=== PATIENT | male | born 1990 | race Caucasian/White ===

== ENCOUNTER 2020-09-03 18:12 | Emergency (ER) | payer BC, SELFPAY ==
[2020-09-03 18:40] VITALS: BP 133/87; PULSE 74; RESP 18; TEMP 37.1; O2SAT 98; BMI 43.4
--- NOTE | 2020-09-03 18:56 | HMH.EDUTC ---
[facility] [place] Clinical Impression: Exposure to COVID-19 virus Otitis media Qualifiers: Otitis media type: suppurative Chronicity: acute Laterality: left Recurrence: non-recurrent Spontaneous tympanic membrane rupture: without spontaneous rupture Qualified Code(s): H66.002 - Acute suppurative otitis media without spontaneous rupture of ear drum, left ear Disposition: Home, Self-Care Condition on Discharge: Good Instructions: Middle Ear Infection, Preventing the Spread of Coronavirus Discharge Instructions Additional Instructions: Drink plenty of fluids. Take tylenol for pain or fever. Return if you begin to have difficulty breathing. Follow up with your regular doctor. GO TO THE ER FOR ANY WORSENING SYMPTOMS Prescriptions: predniSONE [Deltasone 10mg tablet] 10 mg PO BID 3 Days #6 tab Transmission Status: [id number] Azithromycin [Z-Misha 250mg Tab*] 250 mg PO UD DOSE PK #6 tab Transmission Status: [id number] Referrals: Durga Guillen [Primary Care Provider] - Forms: Work/School Release Time of Disposition: 19:19 Medical Decision Making - Medical Records Medical records reviewed: No: I reviewed the patient's medical records. - Iron Inquiry Pt receiving controlled substance: No Vital Signs: 09/03/20 18:40 Temperature 98.8 F Temperature Source Oral Pulse Rate [Right Brachial] 74 Respiratory Rate 18 Blood Pressure [Right Arm] 133/87 Blood Pressure Mean [Right Arm] 102 Blood Pressure Source [Right Arm] Automatic Cuff Blood Pressure Position [Right Arm] Sitting 02 Sat by Pulse Oximetry 98 Oxygen Delivery Method Room Air Orders (Tests/Meds): ORDERS Category Date Time Status Covid-19 Nasal PCR Sendout [facility] 09/03/20 19:04 Received [facility] [place] HPI - General Stated complaint: L ear pain,RODRIGUEZ Time Seen by Provider: 09/03/20 18:56 - History of Present Illness Provider Complaint: He states that since yesterday he has had a headache and left ear pain. He feels like he has an ear infection. He has been exposed to covid at his job also. - Related Data Previous Rx's Medication Instructions Recorded Azithromycin [Z-Misha 250mg Tab*] 250 mg PO UD DOSE PK #6 tab 09/03/20 predniSONE [Deltasone 10mg tablet] 10 mg PO BID 3 Days #6 tab 09/03/20 Allergies Allergy/AdvReac Type Severity Reaction Status Date / Time No Known Allergies Allergy Verified 09/03/20 19:13 [facility] History - Hepatitis A Screen Attestation statement:: This patient has been screened for Hepatitis A risk factors. I have reviewed the patient's past medical history: Yes ROS Obtained: Yes All systems reviewed & no additional complaints - Constitutional Constitutional: Denies chills, Denies fever(s), Reports poor appetite, Reports malaise - Eyes Eyes: Denies eye discharge - ENT Ears, Nose, Mouth, and Throat: Reports as per HPI - Cardiovascular Cardiovascular: Denies chest pain - Respiratory Respiratory: No chest congestion, No cough, No dyspnea, No stridor, No wheezing Physical Exam - General General appearance: alert, in no apparent distress - Head Head exam: atraumatic, normocephalic, normal inspection - Eye Eye exam: Present: normal appearance, PERRL, EOMI - ENT ENT exam: Present: mucous membranes moist, normal external ear exam - Expanded ENT Exam TM/Canal exam: Left TM: erythema, bulging, effusion Nose exam: Present: sinus tenderness Mouth exam: Present: normal external inspection Teeth exam: Present: normal inspection Throat exam: Present: tonsillar erythema. Absent: tonsillomegaly, tonsillar exudate, R peritonsillar mass, L peritonsillar mass - Neck Neck exam: Present: normal inspection, full ROM, trachea midline. Absent: meningismus, lymphadenopathy - Chest Chest inspection: Present: normal inspection, symmetric chest wall rise. Absent: tenderness - Respiratory Respiratory exam: Present: normal lung sounds bilaterally. A
[2020-09-03 19:17] VITALS: BP 133/87; PULSE 74; RESP 18; TEMP 37.1; O2SAT 98
[2020-09-05 09:23] LABS: Covid-19 Nasal PCR Sendout UK Not Detected
== END 2020-09-03 19:19 | disposition home or self-care (01) ==
PROVIDERS: Emergency Provider Nurse Practitioner Family; PCP Pediatrics
DX: Z20.828 Contact with and (suspected) exposure to other viral communicable diseases (principal); H66.002 Acute suppurative otitis media without spontaneous rupture of ear drum, left ear
CPT/HCPCS: 99201; U0003

== ENCOUNTER → 2021-04-29 15:13 | Outpatient (CLI) | payer BC, SELFPAY | PROVIDERS: Visit Provider Obstetrics & Gynecology | DX: Z31.440 Encounter of male for testing for genetic disease carrier status for procreative management (principal) | CPT/HCPCS: 36415 ==

== ENCOUNTER 2021-06-13 17:00 | Outpatient (RCR) | payer BC, SELFPAY | END 2021-07-05 14:30 | disposition home or self-care (01) | LOC: PT.CARL 17:00 | PROVIDERS: PCP Pediatrics; Visit Provider Orthopaedic Surgery Adult Reconstructive Orthopaedic Surgery | DX: M75.102 Unspecified rotator cuff tear or rupture of left shoulder, not specified as traumatic (principal) | CPT/HCPCS: 97010; 97012; 97014; 97110; 97140; 97163; G0283 ==

== ENCOUNTER 2021-06-16 11:22 | Emergency (ER) | payer BC, SELFPAY ==
[2021-06-16 12:55] VITALS: BP 154/93; PULSE 65; RESP 20; TEMP 36.5; O2SAT 96; BMI 46.3
[2021-06-16 13:00] VITALS: BP 154/93; PULSE 65; RESP 16; TEMP 36.7
--- NOTE | 2021-06-16 13:28 | HMH.EDUTC ---
[facility] – [place] Disposition Clinical Impression: Viral syndrome Disposition: Home, Self-Care Condition on Discharge: Good Instructions: DI for Viral Syndrome, DI for COVID-19 (Suspected or Confirmed ), Preventing the Spread of Coronavirus Discharge Instructions Additional Instructions: Drink plenty of fluids. Take tylenol or ibuprofen for pain or fever. Take the medications as directed. Follow up with your regular doctor. GO TO THE ER FOR ANY WORSENING SYMPTOMS Quarantine until you know the results of your covid-19 test. If it is positive, the health department should call you and give you further instructions about your length of Quarantine and other things. Notify your school or workplace of your results and follow their instructions regarding return to work/school. Prescriptions: Brompheniramine/Pseudoephed/Dm [Bromfed Dm Cough Syrup] 5 ml PO Q6HP PRN #240 ml PRN Reason: Cough Transmission Status: [id number] methylPREDNISolone [Medrol] 4 mg PO DIRECTED 6 Days #21 packet Transmission Status: [id number] Azithromycin [Z-Misha 250mg Tab*] 250 mg PO UD DOSE PK #6 tab Transmission Status: [id number] Referrals: Durga Guillen [Primary Care Provider] - Forms: Work/School Release Time of Disposition: 13:31 Medical Decision Making - Medical Records Medical records reviewed: No: I reviewed the patient's medical records. - Iron Inquiry Pt receiving controlled substance: No Vital Signs: 06/16/21 12:55 06/16/21 13:00 Temperature 97.7 F 98.1 F Temperature Source Oral Pulse Rate 65 Pulse Rate [Right] 65 Respiratory Rate 20 16 Blood Pressure 154/93 H Blood Pressure [Right Arm] 154/93 H Blood Pressure Mean [Right Arm] 113 02 Sat by Pulse Oximetry 96 [facility] [place] HPI - General Stated complaint: s throat, cough, sob, head, sumit, nose, diar, wkne Time Seen by Provider: 06/16/21 12:55 Mode of Arrival: Ambulatory Source of Information: Patient Limitations: No Limitations Description of Symptoms (Recalled from Triage Doc. by RN): pt c/o RODRIGUEZ, diarhea, and body aches HEENT Symptoms (Recalled from RN notes): Yes (RODRIGUEZ) Resp Symptoms (Recalled from RN notes): No Skin Symptoms (Recalled from RN notes): No MS Symptoms (Recalled from RN notes): No Functional Status (Recalled from RN notes): body aches - History of Present Illness Provider Complaint: He states that for the past 1 week he has felt bad, had a cough, chest congestion, diarrhea and nausea. - Related Data Previous Rx's Medication Instructions Recorded Azithromycin [Z-Misha 250mg Tab*] 250 mg PO UD DOSE PK #6 tab 09/03/20 predniSONE [Deltasone 10mg tablet] 10 mg PO BID 3 Days #6 tab 09/03/20 Azithromycin [Z-Misha 250mg Tab*] 250 mg PO UD DOSE PK #6 tab 06/16/21 Brompheniramine/Pseudoephed/Dm 5 ml PO Q6HP PRN #240 ml 06/16/21 [Bromfed Dm Cough Syrup] methylPREDNISolone [Medrol] 4 mg PO DIRECTED 6 Days #21 06/16/21 packet Allergies Allergy/AdvReac Type Severity Reaction Status Date / Time No Known Allergies Allergy Verified 09/03/20 19:13 - Worker's Comp Is this a Worker's Comp case?: No [facility] History - Hepatitis A Screen Drug use history?: No High risk sexual behaviors?: No History of sexually transmitted infection?: No Currently employed?: No Childcare worker?: No Do you have indoor plumbing?: Yes Do you have electricity?: Yes Attestation statement:: This patient has been screened for Hepatitis A risk factors. I have reviewed the patient's past medical history: Yes - Social History Alcohol Intake: never Occupational Status: other ROS Obtained: Yes All systems reviewed & no additional complaints - Constitutional Constitutional: Reports as per HPI - Eyes Eyes: Denies eye discharge - ENT Ears, Nose, Mouth, and Throat: Reports as per HPI - Cardiovascular Cardiovascular: Denies chest pain - Respiratory Respiratory: Reports chest congestion,
== END 2021-06-16 13:45 | disposition home or self-care (01) ==
PROVIDERS: Emergency Provider Nurse Practitioner Family; PCP Pediatrics
DX: B34.9 Viral infection, unspecified (principal)
CPT/HCPCS: 99202; G0463; U0003

== ENCOUNTER 2021-07-01 19:50 | Emergency (ER) | payer BC, SELFPAY ==
[2021-07-01 20:51] VITALS: BP 163/97; PULSE 82; RESP 20; TEMP 36.8; O2SAT 98; BMI 46.3
--- NOTE | 2021-07-01 20:57 | HMH.EDUTC ---
[facility] [place] Clinical Impression: Exposure to COVID-19 virus Acute bronchitis Qualifiers: Bronchitis organism: unspecified organism Qualified Code(s): J20.9 - Acute bronchitis, unspecified Disposition: Home, Self-Care Condition on Discharge: Good Instructions: Acute Bronchitis, DI for COVID-19 (Suspected or Confirmed ), Preventing the Spread of Coronavirus Discharge Instructions Prescriptions: Promethazine/Dextromethorphan [Promethazine-Dm Syrup] 5 ml PO Q6HP PRN #240 ml PRN Reason: Cough Transmission Status: [id number] Amoxicillin/Potassium Clav [Augmentin 875-125 Tablet] 1 tab PO Q12H 10 Days #20 tab Transmission Status: Received by [id number] dexAMETHasone [Decadron] 6 mg PO DAILY 6 Days #6 tab Transmission Status: Received by [facility] #[id number] Referrals: Durga Guillen [Primary Care Provider] - Forms: Work/School Release Time of Disposition: 21:27 Medical Decision Making - Medical Records Medical records reviewed: No: I reviewed the patient's medical records. - Iron Inquiry Pt receiving controlled substance: No Vital Signs: 07/01/21 20:51 07/01/21 21:32 Temperature 98.3 F 98.3 F Temperature Source Oral Pulse Rate 82 Pulse Rate [Right Radial] 82 Respiratory Rate 20 20 Blood Pressure 163/97 H Blood Pressure [Right Arm] 163/97 H Blood Pressure Mean [Right Arm] 119 Blood Pressure Source [Right Arm] Automatic Cuff Blood Pressure Position [Right Arm] Sitting 02 Sat by Pulse Oximetry 98 Oxygen Delivery Method Room Air - Lab Data Lab results reviewed: Yes: I reviewed the patient's lab results. Lab Results 07/01/21 21:03: Strep [facility] Negative Orders (Tests/Meds): ORDERS Category Date Time Status Strep Screen Confirmation Stat Micro 07/01/21 21:03 Received [facility] [place] HPI - General Stated complaint: covid test, sore throat,cough,SOA,RODRIGUEZ,sumit Time Seen by Provider: 07/01/21 20:57 Mode of Arrival: Ambulatory Source of Information: Patient Limitations: No Limitations Description of Symptoms (Recalled from Triage Doc. by RN): C/O sore throat, sinus drainage, cough, muscle aches, headache x3 days, diarrhea, vomiting HEENT Symptoms (Recalled from RN notes): Yes (sore throat, sinus drainage, rodriguez) Resp Symptoms (Recalled from RN notes): Yes (cough) Skin Symptoms (Recalled from RN notes): No MS Symptoms (Recalled from RN notes): Yes (muscle aches) Functional Status (Recalled from RN notes): n/a - History of Present Illness Provider Complaint: He is back to f/u after being here with chest congestion and feeling bad around 2 weeks ago. He has finished the medications, but he has not got better. He continues to have a cough, chest congestion, and he continues to feel bad. He did test negative for covid here on his last visit. - Related Data Previous Rx's Medication Instructions Recorded Azithromycin [Z-Misha 250mg Tab*] 250 mg PO UD DOSE PK #6 tab 09/03/20 predniSONE [Deltasone 10mg tablet] 10 mg PO BID 3 Days #6 tab 09/03/20 Azithromycin [Z-Misha 250mg Tab*] 250 mg PO UD DOSE PK #6 tab 06/16/21 Brompheniramine/Pseudoephed/Dm 5 ml PO Q6HP PRN #240 ml 06/16/21 [Bromfed Dm Cough Syrup] methylPREDNISolone [Medrol] 4 mg PO DIRECTED 6 Days #21 06/16/21 packet Amoxicillin/Potassium Clav 1 tab PO Q12H 10 Days #20 tab 07/01/21 [Augmentin 875-125 Tablet] Promethazine/Dextromethorphan 5 ml PO Q6HP PRN #240 ml 07/01/21 [Promethazine-Dm Syrup] dexAMETHasone [Decadron] 6 mg PO DAILY 6 Days #6 tab 07/01/21 Allergies Allergy/AdvReac Type Severity Reaction Status Date / Time No Known Allergies Allergy Verified 09/03/20 19:13 - Worker's Comp Is this a Worker's Comp case?: No [facility] History - Hepatitis A Screen Drug use history?: No High risk sexual behaviors?: No History of sexually transmitted infection?: No Currently employed?: No Childcare worker?: No Do you have indoor plumbing?: Yes Do you have electricity?: Yes Tomeka
--- NOTE | 2021-07-01 21:04 | XR_ITS ---
PROCEDURE INFORMATION: Exam: XR Chest Exam date and time: 07/01/2021 9:04 PM Age: 30 years old Clinical indication: Cough; Additional info: Cough, congestion TECHNIQUE: Imaging protocol: XR of the chest. Views: 2 views. COMPARISON: No relevant prior studies available. FINDINGS: Lungs: Unremarkable. No consolidation. Pleural spaces: No pleural effusion. No pneumothorax. Heart/Mediastinum: Normal heart size. Bones/joints: Unremarkable. IMPRESSION: No acute findings.
[2021-07-01 21:32] VITALS: BP 163/97; PULSE 82; RESP 20; TEMP 36.8; O2SAT 98
[2021-07-02 09:53] LABS: UTC Strep Screen (Rapid) Negative (Negative)
== END 2021-07-01 21:33 | disposition home or self-care (01) ==
PROVIDERS: Emergency Provider Nurse Practitioner Family; PCP Pediatrics
DX: J20.9 Acute bronchitis, unspecified (principal); Z20.822 Contact with and (suspected) exposure to COVID-19
CPT/HCPCS: 71046; 87880; 99202; C9803; G0463; U0003; U0005

== ENCOUNTER 2021-07-27 14:56 | Emergency (ER) | payer BC, SELFPAY ==
[2021-07-27 14:58] VITALS: BP 165/101; PULSE 89; RESP 18; TEMP 36.8; O2SAT 98; BMI 46.3
--- NOTE | 2021-07-27 15:37 | HMH.EDGENADL ---
ED Disposition Clinical Impression: Anasarca Disposition: Home, Self-Care Condition on Discharge: Good Prescriptions: Furosemide [Lasix 40mg tab] 40 mg PO DAILY #10 tab Transmission Status: Pending to [facility]/pharmacy #[id number] Referrals: Durga Guillen [Primary Care Provider] - - Critical Care Critical Care Time: No Attestation: On 07/27/21, the high probability of a clinically significant, sudden or life threatening deterioration of the following system(s) required my full and direct attention, intervention and personal management. The time I documented below is in addition to time spent performing reported procedures but includes the following listed in this critical care notation. Medical Decision Making - Medical Records Medical records reviewed: Yes: I reviewed the patient's medical records. - Iron Inquiry Pt receiving controlled substance: No Vital Signs: 07/27/21 14:58 Temperature 98.2 F Temperature Source Oral Pulse Rate [Right Radial] 89 Respiratory Rate 18 Blood Pressure [Right Arm] 165/101 H Blood Pressure Mean [Right Arm] 122 Blood Pressure Source [Right Arm] Automatic Cuff Blood Pressure Position [Right Arm] Sitting 02 Sat by Pulse Oximetry 98 Oxygen Delivery Method Room Air - Lab Data Lab Results 07/27/21 15:30: WBC 5.7, RBC 4.83, Hgb 14.5, Hct 43.7, MCV 90.4, MCH 30.0, MCHC 33.2, RDW 14.6, Plt Count 199, MPV 8.5, Neut % (Auto) 56.1, Lymph % (Auto) 32.1, [place] % (Auto) 4.6, Eos % (Auto) 6.1, Baso % (Auto) 1.1, Neut # (Auto) 3.2, Lymph # (Auto) 1.8, [place] # (Auto) 0.3, Eos # (Auto) 0.4, Baso # (Auto) 0.1 07/27/21 15:30: Sodium 139, Potassium 4.0, Chloride 107, Carbon Dioxide 27, Anion Gap 9.0, BUN 12, Creatinine 0.60 L, Estimated Creat Clear 199, Estimated GFR 159, Est GFR ( Amer) 193, Glucose 195 H, Calcium 8.5, Total Bilirubin 0.3, AST 31, ALT 44, Alkaline Phosphatase 74, Total Protein 6.4, Albumin 3.8, Globulin 2.6, Albumin/Globulin Ratio 1.5 07/27/21 17:35: Urine Color Yellow, Urine Appearance Clear, Urine pH 6.0, Ur Specific [place] 1.025, Urine Protein Negative, Urine Glucose (UA) Trace, Urine Ketones Negative, Urine Blood Negative, Urine Nitrate Negative, Urine Bilirubin Negative, Urine Urobilinogen 0.2, Ur Leukocyte Esterase Negative, Urine RBC None, Urine WBC None, Ur Squamous Epith Cells Occasional, Urine Bacteria None Result diagrams: 07/27/21 15:30 07/27/21 15:30 Orders (Tests/Meds): ED MEDICATIONS Discontinued Medications Generic Name Dose Route Start Last Admin Trade Name Kleber PRN Reason Stop Dose Admin Ceftriaxone Sodium 1 gm 07/27/21 16:28 Ceftriaxone 1gm Vial IM 07/27/21 16:29 ONCE ONE Doxycycline Hyclate 100 mg 07/27/21 21:00 Doxycycline Hycl 100 Mg Tablet PO 08/10/21 20:59 BID NONA Furosemide 40 mg 07/27/21 16:32 07/27/21 16:34 Furosemide 40mg/4ml Vial IV 07/27/21 16:33 40 mg ONCE ONE Administration Lidocaine HCl 0 ml 07/27/21 16:28 Lidocaine 1% 5ml Pf Vial IM 07/27/21 16:29 ONCE ONE Medical Decision Narrative: Patient is a 30-year-old male presents to the ED today with diffuse body wall anasarca. Differential diagnosis includes heart failure, liver failure, renal failure, mechanical obstruction, lymphatic dysfunction, fluid overload. Will obtain CBC CMP urinalysis D-dimer and a MP, chest x-ray. I believe the chance of the patient having bilateral upper and lower extremity DVTs is low, both legs are equally swollen with not one being worse than the other, sure of the etiology at this point, will obtain lab work-up and reassess. Patient's labs evaluated with no evidence of liver dysfunction, no evidence of renal dysfunction, patient given 40 mg of IV Lasix to facilitate diuresis, and he has had large volume diuresis, has not had any improvement in his swelling yet but this would not also be expected. Patient's vitals have been stable, chest x-ray without focal consolidation or pneumonia, unsure of patie
--- NOTE | 2021-07-27 15:43 | XR_ITS ---
PROCEDURE: XR CHEST PORTABLE CLINICAL HISTORY: Diffuse anasarca COMPARISON: CR XR CHEST 2V from 07/01/2021 FINDINGS: Borderline cardiomegaly without failure. The lungs are clear without infiltrates, suspicious nodules, or pleural effusions. No acute bony abnormalities. IMPRESSION: Borderline cardiomegaly otherwise negative Dictated by: Carlos Baker MD 07/27/2021 16:29 Carlos Baker MD in [place] 07/27/2021 16:29
[2021-07-27 15:52] LABS: Basophils # 0.1 K/mm3 (0-0.2); Basophils % 1.1 % (0.1-2.0); Eosinophils # 0.4 K/mm3 (0.0-0.4); Eosinophils % 6.1 % (0.1-12.0); Hematocrit 43.7 % (42.0-52.0); Hemoglobin 14.5 g/dL (14.1-18.0); Lymphocytes # 1.8 K/mm3 (0.7-4.5); Lymphocytes % 32.1 % (10-50); Mean Corpuscular HGB Conc 33.2 g/dL (31.8-35.4); Mean Corpuscular Volume 90.4 fl (80-94); Mean Platelet Volume 8.5 fl (7.4-10.4); Monocytes # 0.3 K/mm3 (0.1-1.0); Monocytes % 4.6 % (1.7-9.3); Neutrophils # 3.2 K/mm3 (1.8-7.8); Neutrophils % 56.1 % (37.0-80.0); Platelet Count 199 K/mm3 (142-424); Red Blood Count 4.83 M/mm3 (4.60-6.20); Red Cell Distribution Width 14.6 % (11.5-17.5); White Blood Count 5.7 K/mm3 (4.8-10.8)
[2021-07-27 15:54] LABS: Chloride 107 mmol/L (98-107); Sodium 139 mmol/L (136-145)
[2021-07-27 15:57] LABS: Alanine Aminotransferase 44 U/L (12-78); Albumin Level 3.8 g/dl (3.5-5.0); Albumin/Globulin Ratio 1.5 (1.1-1.8); Alkaline Phosphatase 74 U/L (38-126); Aspartate Amino Transferase 31 U/L (17-59); Bilirubin,Total 0.3 mg/dl (0.2-1.3); Blood Urea Nitrogen 12 mg/dl (9-20); Calcium 8.5 mg/dl (8.4-10.2); Carbon Dioxide 27 mmol/L (22.0-30.0); Creatinine Clearance Estimated 199 mL/min (50-200); Estimated Glomerular Filt Rate 159 ml/min (>60); GFR (African American) 193 ML/MIN (>60); Globulin 2.6 g/dL (1.3-3.2); Glucose 195 mg/dl (74-100); Total Protein,Serum 6.4 g/dl (6.3-8.2)
[2021-07-27 17:40] LABS: Microscopic, Urine URINE MICROSCOPIC (MICROSCOPIC)
[2021-07-27 17:44] LABS: Appearance,Urine CLEAR (Clear); Bilirubin,Urine Negative (Negative); Blood, Urine Negative (Negative); Color,Urine YELLOW (Yellow); Glucose,Urine (UA) TRACE (Negative); Ketones,Urine Negative (Negative); Leukocyte Esterase,Urine Negative (Negative); Nitrate,Urine Negative (Negative); Protein,Urine Negative (Negative); Specific Gravity, Urine 1.025 (1.005-1.030); Urobilinogen,Urine 0.2 EU/dl (0.2)
[2021-07-27 18:23] LABS: Squamous Epithelial Cell,Urine Occasional #/hpf (0-5)
[2021-07-27 19:14] VITALS: BP 181/110; PULSE 82; RESP 16; TEMP 36.9; O2SAT 90
== END 2021-07-27 19:14 | disposition home or self-care (01) ==
PROVIDERS: Emergency Provider Student in an Organized Health Care Education/Training Program; PCP Pediatrics
DX: R60.1 Generalized edema (principal); R03.0 Elevated blood-pressure reading, without diagnosis of hypertension; R73.9 Hyperglycemia, unspecified; E66.9 Obesity, unspecified
CPT/HCPCS: 71045; 80053; 81001; 85025; 96374; 99283

== ENCOUNTER → 2021-08-24 12:56 | Outpatient (CLI) | payer BC, SELFPAY ==
--- NOTE | 2021-08-24 12:57 | CA_ITS ---
APPROVED REPORT Exam: Exercise Treadmill Technologist: Marcela Mireles, Ht: 6 ft 0 in Wt: 365 lbs BSA: 2.75 m2 HR: 101 bpm BP: 153/81 mmHg Rhythm: NSR,NORMAL Medical History Medical History: Diabetic ??? Noninsulin, HTN, Hyperlipidemia Medications: Omeprazole,,,,, Metformin,,,,, Benazepril,,,,, AtorvaASTATIN,,,,, BuPROPIn,,,,, Cardiac Risk Factors: HTN, Hyperlipidemia, Diabetes (non-insulin), Smoking, FHX of CAD Stress Test Details Test: [place] HR Resting HR: 110 bpm Max Heart Rate (APMHR): 191 bpm Max HR Achieved: 132 bpm Target HR (85% APMHR): 162 bpm % of APMHR: 69 Recovery HR: 120 bpm BP Resting BP: 153.0/81.0 mmHg Max BP: 220.0/84.0 mmHg Recovery BP: 154.0/82.0 mmHg ECG Resting ECG: NSR,NORMAL Clinical Exercise duration: 05:08 min Highest Stage Achieved: Exercise capacity: 7.0 METs Stress ECG Conclusion PATIENT EXERCISED 5:08 ON [place] PROTOCOL WITH MAX HEART RATE 132 BPM WHICH IS 69% OF PM FOR AGE. MAX BP 220/84. METS = 7.0. TEST STOPPED DUE TO SOA. DURING TEST PATIENT HAD DYSPNEA AND HEART POUNDING. NO CHEST PAIN. NO ARRHYTHMIA/ECTOPY. NORMAL ST RESPONSE TO EXERCISE. NON DIAGNOSTIC GXT TO HEART RATE ACHIEVED(ONLY 69% OF PM). VERY POOR EXERCISE TOLERANCE FOR AGE. GXT ONLY(NO IMAGING) Electronically signed by : Michele Lu MD 08/25/2021 10:25:02
--- NOTE | 2021-08-24 12:57 | CA_ITS ---
APPROVED REPORT EXAM: Comprehensive 2D, Doppler, and color-flow Echocardiogram Informatics Educator: Kathleen Bhakta RVT Ht: 6 ft 0 in Wt: 365lbs BSA: 2.75 BP: 147/96 mmHg Indications: CP,SOA,OBESITY,EDEMA,DIZZINESS,HTN 2D Dimensions LVOT 2.57 cm (M/F) 1.5-2.5 LA Volume 26.30 mL LA Volume Index 9.56 mL/m2 (M/F) 16-34 M-Mode Dimensions RVDd 2.95 cm (0.9-2.6) LA Diam 3.70 cm (1.9-4.0) LVDd 6.53 cm (3.5-5.7) Ao Diam 3.32 cm (2.0-3.7) LVDs 4.34 cm (3.5-5.7) IVSd 0.85 cm (0.6-1.1) PWd 1.30 cm (0.6-1.1) EF (Teich) 61.10% FS 33.50% EDV (Teich) 218.30 mL TAPSE 2.96 (<1.7) ESV (Teich) 84.90 mL LV Diastology MED E' 8.20 (< 7 cm/sec) LAT E' 11.00 (<10 cm/sec) Pulmonary Valve PV Peak Velocity 82.00 (50-150 cm/s) Left Ventricle Technically difficult study because of the patient factors and poor acoustic windows. Left atrium is normal size, left ventricle is normal size, there is no concentric left ventricular hypertrophy, visually estimated ejection fraction 50% with no obvious regional wall motion abnormality, diastolic parameters are inconclusive in the study. Right Ventricle Right atrium and right ventricle is actually normal size and function. Aortic Valve Aortic valve is grossly normal, there is no aortic stenosis or aortic insufficiency. Mitral Valve Mitral valve grossly normal, there is no significant mitral regurgitation. Tricuspid Valve Tricuspid grossly normal, there is no significant tricuspid regurgitation noted to calculate right ventricular systolic pressure. Pulmonic Valve Pulmonic valve is poorly visualized. Great Vessels Aortic root is normal size. No significant pericardial effusion noted. Inferior vena cava is not visualized Pericardium Pericardial effusion noted. Conclusion 1. Normal left ventricular size, preserved left ventricular systolic function, visually estimated ejection fraction 55% with no regional wall motion abnormality, diastolic parameters are inconclusive in the study. 2. Trace mitral and tricuspid regurgitation. 3. No significant pericardial effusion noted. 4. Inferior vena cava is not well visualized. Electronically signed by : Michele Lu MD 08/25/2021 14:41:14
== END ==
PROVIDERS: PCP Nurse Practitioner Family; Visit Provider Urology
DX: R07.9 Chest pain, unspecified (principal); R42 Dizziness and giddiness; R00.2 Palpitations; R60.0 Localized edema; I10 Essential (primary) hypertension; R94.31 Abnormal electrocardiogram [ECG] [EKG]
CPT/HCPCS: 93017; 93306

== ENCOUNTER → 2021-09-07 11:37 | Outpatient (CLI) | payer BC, MEDICAID, SELFPAY ==
--- NOTE | 2021-09-07 | CA_ITS ---
APPROVED REPORT Exam: Pharmacologic Technologist: Ashely Ruffin Ht: 6 ft 0 in Wt: 365 lbs BSA: 2.75 m2 HR: 76 bpm BP: 148/83 mmHg Indications: Chest pain Medical History Medications: Omeprazole,,,,, Metformin,,,,, Atorvastatin,,,,, BuPROPION,,,,, Sertraline,,,,, Benazepril-Hydrochlorothiazide,,,,, Stress Test Details Test: LEXISCAN HR Resting HR: 75 bpm Max Heart Rate (APMHR): 191 bpm Max HR Achieved: 94 bpm Target HR (85% APMHR): 162 bpm % of APMHR: 49 Recovery HR: 84 bpm BP Resting BP: 148.0/83.0 mmHg Max BP: 156.0/82.0 mmHg Recovery BP: 146.0/80.0 mmHg ECG Resting ECG: Normal sinus rhythm, slow R wave progression Clinical Exercise duration: 04:12 min Highest Stage Achieved: Stress ECG Conclusion Symptoms: Shortness of air, fuzzy headed, very mild stomach discomfort. No chest pain. Arrhythmias/Ectopy: None ST-T Changes: No significant changes. Conclusion: Unremarkable Lexiscan stress. Myoview images reported separately. Electronically signed by : Michele Lu MD 09/07/2021 20:07:53
--- NOTE | 2021-09-07 11:43 | NM_ITS ---
APPROVED REPORT Exam: Nuclear Stress Test Indication: Chest pain, SOB, Fatigue, Obesity, HTN, High cholesterol, Tobacco use, Family history Patient Location: Outpatient Stress Tech: Ashely Ruffin AR Tech:Lidya Bower, ARRT, RT (R)(N) Ht: 6 ft 0 in Wt: 362 lbs HR: 75 bpm BP: 148/83 mmHg BSA: 2.74 m2 History: Chest pain, SOB, Fatigue, Obesity, HTN, High cholesterol, Tobacco use, Family history Procedure: Patient received a 0.4 mg of intravenous Lexiscan, resting heart rate 75 bpm, resting blood pressure 148/83 mmHg, with Lexiscan maximum heart rate achived was 94 bpm which is Less than 85 % of the maximum predicted heart rate and blood pressure was 156/82 mmHg. With Lexiscan, patient denied any complaint of chest pain. Electrocardiogram Resting electrocardiogram shows sinus rhythm, with Lexiscan there is less than 1.[address] segment depression noted from the baseline EKG. The EKG portion of the Lexiscan is nondiagnostic. Cardiac Stress and Resting SPECT Images: Cardiac Stress and Resting SPECT images were obtained using technetium 99m Myoview 32.4 mCi stress and 9.77 mCi at rest. Gated SPECT for analysis of segmental wall motion and calculation of the ejection fraction also done. Cardiac stress and rest SPECT images show uniform myocardial activity without segmental perfusion abnormality, computer derived ejection fraction is 43% with no regional wall motion abnormality, right ventricle is normal size and contractility. Conclusion: 1. The EKG portion of the Lexiscan is nondiagnostic. 2. No scintigraphic evidence of reversible ischemia seen, compared right ejection fraction 43% with no regional wall motion abnormality, right ventricle is normal size and contractility. 3. Abnormal Lexiscan Myoview study due to low ejection fraction. Electronically signed by : Michele Lu MD 09/07/2021 21:59:41
--- NOTE | 2021-09-07 13:01 | HMH.ITSHM ---
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 []SERTRALINE OMEPRAZOLE METFORMIN CARVEDILOL BUPROPION BENAZEPRIL ATORVASTATIN
== END ==
PROVIDERS: PCP Nurse Practitioner Family; Visit Provider Nurse Practitioner Family
DX: R07.9 Chest pain, unspecified (principal); R94.31 Abnormal electrocardiogram [ECG] [EKG]; I10 Essential (primary) hypertension
CPT/HCPCS: 78452; 93017; A9502; J2785

== ENCOUNTER 2021-10-06 15:30 | Outpatient (RCR) | payer BC, SELFPAY | END 2021-11-01 11:08 | disposition home or self-care (01) | LOC: OT 15:30 | PROVIDERS: PCP Pediatrics; Visit Provider Orthopaedic Surgery Adult Reconstructive Orthopaedic Surgery | DX: M25.512 Pain in left shoulder (principal); Z96.612 Presence of left artificial shoulder joint | CPT/HCPCS: 97010; 97035; 97110; 97140; 97164; 97165; 97530 ==

== ENCOUNTER 2021-11-06 16:14 | Emergency (ER) | payer BC, MEDICAID, SELFPAY ==
[2021-11-06 16:48] VITALS: BP 147/85; PULSE 89; RESP 18; TEMP 37.4; O2SAT 100; BMI 49.4
--- NOTE | 2021-11-06 16:52 | HMH.EDUTC ---
[facility] [place] Clinical Impression: Sinusitis Qualifiers: Sinusitis location: unspecified location Chronicity: unspecified Qualified Code(s): J32.9 - Chronic sinusitis, unspecified Disposition: Home, Self-Care Condition on Discharge: Good Instructions: Nausea and Vomiting-Adult, DI for COVID-19 (Suspected or Confirmed ), Preventing the Spread of Coronavirus Discharge Instructions Additional Instructions: *Monitor Temp, Over the counter Motrin or Tylenol as directed/as needed Tylenol every 4 hours and Motrin every 6 hours (as long as your family doctor has told you that you can take it) for fever or pain. and straight to ER if unable to lower temp less than 101.0 after medication given *Warm salt water gargles may help to soothe the throat *Throat Lozenges *Warm fluids like tea with honey may help to soothe the throat *Sleep elevated *Humidifier/Vaporizer Your throat swab was sent for culture. Those results are typically sent to your primary care. Be sure to follow up in 2-3 days with your family doctor/primary care physician if no improvement so they can review those result and treat if necessary. If you don?t have a primary care doctor, I recommend you get one but in the mean time, you will have to return to a walk in clinic Follow up IMMEDIATELY for new or worsening symptoms or no Noticeable improvement over the next 48-72 hours. 911 for difficulty breathing or swallowing You were tested for today for COVID19 your test result should be back in the next 24-48 hours, you may check your results on the [facility] My Health Portal if you have trouble logging on you may call [employer] support for assistance You was given a handout with instructions for Self Quarantine and Self isolation for while you wait on test results and what to do if they are positive If you are positive the Health Dept will be contacting you also Make sure to take your Vitamins Vit. C Vit D and Zinc if you can take them Prescriptions: predniSONE [Deltasone 10mg tablet] 10 mg PO BID 5 Days #10 tab Transmission Status: [id number] Promethazine HCl [Phenergan 12.5mg tablet] 12.5 mg PO Q6H PRN #6 tab PRN Reason: Vomiting Transmission Status: Pending to [id number] Azithromycin [Z-Misha 250mg Tab] 250 mg PO DIRECTED #6 tab Transmission Status: Pending to [id number] Referrals: Venita Case APRN [Primary Care Provider] - As needed Forms: Work/School Release Medical Decision Making - Iron Inquiry Pt receiving controlled substance: No Irno was queried for this patient: No Vital Signs: 11/06/21 16:48 Temperature 99.4 F Temperature Source Oral Pulse Rate [Left] 89 Respiratory Rate 18 Blood Pressure [Right Arm] 147/85 H Blood Pressure Mean [Right Arm] 105 02 Sat by Pulse Oximetry 100 - Lab Data Lab results reviewed: Yes: I reviewed the patient's lab results. Lab Results 11/06/21 16:47: Group A Strep Rapid Negative 11/06/21 16:51: Influenza Type A Ag Negative, Influenza Type B Ag Negative Orders (Tests/Meds): ED MEDICATIONS Discontinued Medications Generic Name Dose Route Start Last Admin Trade Name Freq PRN Reason Stop Dose Admin Acetaminophen 650 mg 11/06/21 17:04 11/06/21 17:09 Acetaminophen 325mg Tab PO 11/06/21 17:05 650 mg ONCE ONE Administration Ondansetron HCl 4 mg 11/06/21 17:03 11/06/21 17:10 Ondansetron 4mg Odt SL 11/06/21 17:04 4 mg ONCE ONE Administration ORDERS Category Date Time Status Covid-19 Nasal PCR ([facility]) Routine Lab 11/06/21 16:47 Received Strep Screen Confirmation Stat Micro 11/06/21 16:47 Received Medical Decision Narrative: Patient reports that he has taken azithromycin and Medrol in the past without complication or reactions No vomiting since arrival Drink bottle of water and has kept it down [facility] [place] - General Stated complaint: sore throat,cough,SOB,RODRIGUEZ V&D Time Seen by Provider: 11/06/21 16:56 Mode of Arrival: Ambulator
[2021-11-06 17:00] LABS: UTC Influenza A Antigen Negative (Negative); UTC Influenza B Antigen Negative (Negative)
[2021-11-06 17:11] LABS: Strep Scrn Group A (Rapid) Negative (Negative)
[2021-11-06 17:33] VITALS: BP 147/85; PULSE 89; RESP 18; TEMP 37.4
--- NOTE | 2021-11-07 11:19 | PC.NURSE ---
relayed positive covid result to pt.
== END 2021-11-06 17:37 | disposition home or self-care (01) ==
PROVIDERS: Emergency Provider Nurse Practitioner; PCP Nurse Practitioner Family
DX: U07.1 COVID-19 (principal); J32.9 Chronic sinusitis, unspecified; K21.9 Gastro-esophageal reflux disease without esophagitis; I10 Essential (primary) hypertension; F17.210 Nicotine dependence, cigarettes, uncomplicated
CPT/HCPCS: 87430; 87804; 99203; C9803; G0463; U0003; U0005

== ENCOUNTER 2022-05-16 15:35 | Emergency (ER) | payer BC, MEDICAID, SELFPAY ==
[2022-05-16 16:00] VITALS: BP 161/93; PULSE 91; RESP 19; TEMP 37.1; O2SAT 98; BMI 49.1
[2022-05-16 16:15] VITALS: BP 161/93; PULSE 91; RESP 19; TEMP 37.1; O2SAT 98
--- NOTE | 2022-05-16 16:24 | HMH.EDUTC ---
[facility] [place] Clinical Impression: Exposure to COVID-19 virus Disposition: Home, Self-Care Condition on Discharge: Good Instructions: DI for COVID-19 (Suspected or Confirmed ), Preventing the Spread of Coronavirus Discharge Instructions, Ondansetron Additional Instructions: *Monitor Temp, Over the counter Motrin or Tylenol as directed/as needed Tylenol every 4 hours and Motrin every 6 hours (as long as your family doctor has told you that you can take it) for fever or pain. and straight to ER if unable to lower temp less than 101.0 after medication given *Warm salt water gargles may help to soothe the throat *Throat Lozenges *Warm fluids like tea with honey may help to soothe the throat *Sleep elevated *Humidifier/Vaporizer Follow up IMMEDIATELY for new or worsening symptoms or no Noticeable improvement over the next 48-72 hours. 911 for difficulty breathing or swallowing You were tested for today for COVID19 your test result should be back in the next 24-48 hours, you may check your results on the [facility] My Health Portal Make sure to take your Vitamins Vit. C Vit D and Zinc if you can take them Prescriptions: Ondansetron [Zofran 4mg ODT] 4 mg PO TIDP PRN #15 tab PRN Reason: Nausea Transmission Status: Pending to [facility]/pharmacy #[id number] Referrals: Venita Case APRN [Primary Care Provider] - As needed Forms: Work/School Release Time of Disposition: 16:27 Medical Decision Making - Iron Inquiry Pt receiving controlled substance: No Iron was queried for this patient: No Vital Signs: 05/16/22 16:00 05/16/22 16:15 Temperature 98.8 F 98.8 F Temperature Source Oral Pulse Rate 91 H Pulse Rate [Left Brachial] 91 H Respiratory Rate 19 19 Blood Pressure 161/93 H Blood Pressure [Left Arm] 161/93 H Blood Pressure Mean [Left Arm] 115 Blood Pressure Source [Left Arm] Automatic Cuff Blood Pressure Position [Left Arm] Sitting 02 Sat by Pulse Oximetry 98 Oxygen Delivery Method Room Air Orders (Tests/Meds): ORDERS Category Date Time Status Covid-19 Nasal PCR ([facility]) Routine Lab 05/16/22 16:00 Received [facility] [place] HPI - General Stated complaint: covid test, sore throat and body aches Time Seen by Provider: 05/16/22 16:24 Mode of Arrival: Ambulatory Source of Information: Patient Limitations: No Limitations Description of Symptoms (Recalled from Triage Doc. by RN): COVID TEST D/T EXPOSURE HEENT Symptoms (Recalled from RN notes): No Resp Symptoms (Recalled from RN notes): No Skin Symptoms (Recalled from RN notes): No MS Symptoms (Recalled from RN notes): No Functional Status (Recalled from RN notes): WNL - History of Present Illness Provider Complaint: Patient states that he is and kids just tested positive for COVID now he is having fever, chills, headache and diarrhea so he came in to get tested due to close exposure - Related Data Home Medications Medication Instructions Recorded Confirmed atorvastatin 20 mg tablet 20 mg PO DAILY tab 08/16/21 09/21/21 bupropion HCl 200 mg tablet,12 hr 200 mg PO BID each 08/16/21 09/21/21 sustained-release metformin 500 mg tablet 500 mg PO DAILY tab 08/16/21 09/21/21 omeprazole 20 mg capsule,delayed 20 mg PO BID cap 08/16/21 09/21/21 release sertraline 25 mg tablet 25 mg PO DAILY tab 08/30/21 09/21/21 Previous Rx's Medication Instructions Recorded benazepril 20 1 tab PO DAILY #90 tab 08/16/21 mg-hydrochlorothiazide 12.5 mg tablet Azithromycin [Z-Misha 250mg Tab] 250 mg PO DIRECTED #6 tab 11/06/21 Promethazine HCl [Phenergan 12.5mg 12.5 mg PO Q6H PRN #6 tab 11/06/21 tablet] predniSONE [Deltasone 10mg tablet] 10 mg PO BID 5 Days #10 tab 11/06/21 carvedilol 12.5 mg tablet See Rx Instructions .ROUTE 11/22/21 .COMPLEX #180 tab Ondansetron [Zofran 4mg ODT] 4 mg PO TIDP PRN #15 tab 05/16/22 Allergies Allergy/AdvReac Type Severity Reaction Status Date / Time No Known Allergies Allergy Verified 09/21/21 1
== END 2022-05-16 16:32 | disposition home or self-care (01) ==
PROVIDERS: Emergency Provider Nurse Practitioner; PCP Nurse Practitioner Family
DX: U07.1 COVID-19 (principal)
CPT/HCPCS: 99212; C9803; G0463; U0003; U0005

== ENCOUNTER 2022-08-20 20:11 | Emergency (ER) | payer MEDICAID, SELFPAY ==
[2022-08-20 20:13] VITALS: BP 150/84; PULSE 87; RESP 16; TEMP 36.4; O2SAT 95; BMI 48.5
--- NOTE | 2022-08-20 20:26 | PC.NURSE ---
Visual acuity performed. Left eye 20/50. Right eye 20/20.
--- NOTE | 2022-08-20 20:26 | PC.NURSE ---
Dr. Villegas at [facility]
--- NOTE | 2022-08-20 20:50 | HMH.EDGENADL ---
Discharge Plan Disposition Patient Disposition: Home, Self-Care Condition: Good Chief Complaint: Eye Problems Prescriptions Prescriptions: No Action omeprazole 20 mg capsule,delayed release(DR/EC) 20 mg PO BID atorvastatin 20 mg tablet 20 mg PO DAILY bupropion HCl 200 mg tablet sustained-release 12 hr 200 mg PO BID benazepril-hydrochlorothiazide 20-12.5 mg tablet 1 tab PO DAILY Qty: 90 3RF carvedilol 12.5 mg tablet 12.5 mg PO BID pseudoephedrine HCl 120 mg tablet extended release 120 mg PO Q12H Qty: 20 1RF azithromycin 250 mg tablet See Rx Instructions PO .COMPLEX Qty: 6 0RF Rx Instructions: For 250 mg dose pack: take 500 mg today (day 1), then 250 mg for 4 days (days 2-5) PO Referrals Follow up/Referrals: Nikhil Buckner MD [Primary Care Provider] - See instructions Activity Restrictions/Add. Instructions Additional Instructions/Restrictions: Erythromycin ointment to L eye twice a day. See your eye doctor tomorrow. Return to ER for worsening symptoms, pain. Clinical Impressions Clinical Impression: Bacterial conjunctivitis Discharge ED Provider: Refugio Villegas General Adult HPI General Chief complaint: Eye Problems Stated complaint: left eye pain swollen unknown if anything in eye Time Seen by Provider: 08/20/22 20:22 Mode of Arrival: Ambulatory Source of Information: Patient Limitations: No Limitations Description of Symptoms (Recalled from ER Triage Doc. by RN): Pt c/o left eye irritation and drainage for 2 days. Pt states his children had pink eye recently and he thought he was getting pink eye so he used his childrens abx eye drops. He reports yellow to clear drainage from the eye and swelling, worse in the morning. History of Present Illness HPI narrative: 31yo M presents the ER 2/2 3d of L eye swelling, itching, and tearing. Reports 2 children at home were dx'd w/ pink eye and started on an ointment. He is uncertain the name of the ointment but began using it 2 days ago and worsened. Reports decreased VA of affected eye and photosensitivity. Typically has 20/20 and doesn't use contact lens or glasses. Denies trauma or working in an area w/ lots of airborne debris. Related Data Home Medications Medication Instructions Recorded Confirmed atorvastatin 20 mg tablet 20 mg PO DAILY 08/16/21 08/17/22 bupropion HCl 200 mg tablet,12 hr 200 mg PO BID 08/16/21 08/17/22 sustained-release omeprazole 20 mg capsule,delayed 20 mg PO BID 08/16/21 08/17/22 release carvedilol 12.5 mg tablet 12.5 mg PO BID HTN 07/24/22 08/17/22 Previous Rx's Medication Instructions Recorded benazepril 20 1 tab PO DAILY #90 tabs 08/16/21 mg-hydrochlorothiazide 12.5 mg tablet azithromycin 250 mg tablet See Rx Instructions PO .COMPLEX #6 08/17/22 tabs pseudoephedrine HCl 120 mg 120 mg PO Q12H #20 tabs 08/17/22 tablet,extended release Allergies Allergy/AdvReac Type Severity Reaction Status Date / Time No Known Allergies Allergy Verified 08/17/22 13:24 PFSH PFSH Surgical History History of dental surgery History of shoulder surgery Family History Mother Diabetes Grandfather Heart attack Father Coronary artery disease Brother Heart attack Social History Smoking Status: Former smoker alcohol intake: former substance use type: denies use current occupational status: employed Travel in the last 8 weeks: None household members: spouse and children housing: house marital status: ROS Obtained: Yes All systems reviewed & no additional complaints except as documented Physical Exam General General appearance: alert and in no apparent distress Head Head exam: atraumatic and normocephalic Eye Eye exam: Present PERRL, EOMI and conjunctival redness (L) Expanded Eye Exam
[2022-08-20 21:12] VITALS: BP 140/80; PULSE 87; RESP 19; TEMP 36.8; O2SAT 98
== END 2022-08-20 21:16 | disposition home or self-care (01) ==
PROVIDERS: Emergency Provider Family Medicine; PCP Family Medicine
DX: H10.9 Unspecified conjunctivitis (principal); R94.31 Abnormal electrocardiogram [ECG] [EKG]; I10 Essential (primary) hypertension; K21.9 Gastro-esophageal reflux disease without esophagitis; E78.5 Hyperlipidemia, unspecified; Z87.891 Personal history of nicotine dependence; Z82.49 Family history of ischemic heart disease and other diseases of the circulatory system; Z83.3 Family history of diabetes mellitus
CPT/HCPCS: 99283

== ENCOUNTER 2022-08-22 06:37 | Emergency (ER) | payer MEDICAID, SELFPAY ==
[2022-08-22 06:40] VITALS: BP 154/97; PULSE 75; RESP 16; TEMP 36.6; O2SAT 97; BMI 47.5
--- NOTE | 2022-08-22 07:32 | PC.NURSE ---
DR. GONZALEZ AT BEDSIDE TO EVALUATE PT
--- NOTE | 2022-08-22 07:55 | HMH.EDEYEP ---
Discharge Plan Disposition Patient Disposition: Home, Self-Care Prescriptions Prescriptions: New cephalexin [cephalexin] 500 mg capsule 500 mg PO TID Qty: 30 0RF No Action omeprazole 20 mg capsule,delayed release(DR/EC) 20 mg PO BID atorvastatin 20 mg tablet 20 mg PO DAILY bupropion HCl 200 mg tablet sustained-release 12 hr 200 mg PO BID benazepril-hydrochlorothiazide 20-12.5 mg tablet 1 tab PO DAILY Qty: 90 3RF carvedilol 12.5 mg tablet 12.5 mg PO BID pseudoephedrine HCl 120 mg tablet extended release 120 mg PO Q12H Qty: 20 1RF azithromycin 250 mg tablet See Rx Instructions PO .COMPLEX Qty: 6 0RF Rx Instructions: For 250 mg dose pack: take 500 mg today (day 1), then 250 mg for 4 days (days 2-5) PO Referrals Follow up/Referrals: Nikhil Buckner MD [Primary Care Provider] - See instructions Clinical Impressions Clinical Impression: Bacterial conjunctivitis, Iritis due to infection Instructions Patient Instructions: DI for Eye Pain Discharge ED Provider: Fletcher Paredes Eye Problem HPI General Chief complaint: Eye Problems Stated complaint: seen Sat. with eye problems now eyes has red drain Time Seen by Provider: 08/22/22 07:40 Mode of Arrival: Ambulatory Source of Information: Patient and Medical Record Limitations: No Limitations Description of Symptoms (Recalled from ER Triage Doc. by RN): pt was seen here sunday for pinkeye and was told to come back if the pain gets worse. pt states that the pain is worse and he was crying blood tinged tears and possibly actual blood tears. the pt states that his eye lid is now stucks together History of Present Illness HPI Narrative: was seen on sat with eye infection but despite emycin eye ont has more pain with blurred vision and blood in tears and swelling chief complaint: eye pain Onset (ago): day(s) Onset description: gradual Location: left eye Severity: moderate Associated symptoms: none Related Data Home Medications Medication Instructions Recorded Confirmed atorvastatin 20 mg tablet 20 mg PO DAILY 08/16/21 08/17/22 bupropion HCl 200 mg tablet,12 hr 200 mg PO BID 08/16/21 08/17/22 sustained-release omeprazole 20 mg capsule,delayed 20 mg PO BID 08/16/21 08/17/22 release carvedilol 12.5 mg tablet 12.5 mg PO BID HTN 07/24/22 08/17/22 Previous Rx's Medication Instructions Recorded benazepril 20 1 tab PO DAILY #90 tabs 08/16/21 mg-hydrochlorothiazide 12.5 mg tablet azithromycin 250 mg tablet See Rx Instructions PO .COMPLEX #6 08/17/22 tabs pseudoephedrine HCl 120 mg 120 mg PO Q12H #20 tabs 08/17/22 tablet,extended release cephalexin 500 mg capsule 500 mg PO TID #30 caps 08/22/22 Allergies Allergy/AdvReac Type Severity Reaction Status Date / Time No Known Allergies Allergy Verified 08/17/22 13:24 PFSH PFSH Surgical History History of dental surgery History of shoulder surgery Family History Mother Diabetes Grandfather Heart attack Father Coronary artery disease Brother Heart attack Social History Smoking Status: Current every day smoker tobacco type: cigarettes packs per day: 1 alcohol intake: former substance use type: denies use current occupational status: employed Travel in the last 8 weeks: None household members: spouse and children housing: house marital status: ROS Obtained: Yes All systems reviewed & no additional complaints except as documented Physical Exam General General appearance: alert Head Head exam: normocephalic Eye Eye exam: Present PERRL, EOMI, periorbital swelling, periorbital tenderness and other (has diffuse reddness with perilimbic sparring ) ENT ENT exam: Present mucous membranes moist Neck Neck exam: Present trachea midline Respiratory R
[2022-08-22 08:13] VITALS: BP 144/80; PULSE 84; RESP 16; TEMP 37; O2SAT 98
== END 2022-08-22 08:14 | disposition home or self-care (01) ==
PROVIDERS: Emergency Provider Emergency Medicine; PCP Family Medicine
DX: H10.9 Unspecified conjunctivitis (principal); H53.8 Other visual disturbances; R94.31 Abnormal electrocardiogram [ECG] [EKG]; I10 Essential (primary) hypertension; K21.9 Gastro-esophageal reflux disease without esophagitis; E78.5 Hyperlipidemia, unspecified; F17.210 Nicotine dependence, cigarettes, uncomplicated; Z79.899 Other long term (current) drug therapy; Z82.49 Family history of ischemic heart disease and other diseases of the circulatory system; Z83.3 Family history of diabetes mellitus
CPT/HCPCS: 99283

== ENCOUNTER → 2022-09-13 14:59 | Outpatient (CLI) | payer MEDICAID, SELFPAY | PROVIDERS: PCP Nurse Practitioner Family; Visit Provider Nurse Practitioner Family | DX: J02.9 Acute pharyngitis, unspecified (principal) | CPT/HCPCS: 87070 ==

== ENCOUNTER → 2022-12-14 06:45 | Outpatient (CLI) | payer MEDICAID, SELFPAY | PROVIDERS: PCP Nurse Practitioner Family; Visit Provider Nurse Practitioner Family | DX: J02.9 Acute pharyngitis, unspecified (principal) | CPT/HCPCS: 87070 ==

== ENCOUNTER 2022-12-30 13:58 | Emergency (ER) | payer MEDICAID, SELFPAY ==
[2022-12-30 14:55] VITALS: BP 149/77; PULSE 74; RESP 20; TEMP 36.9; O2SAT 97; BMI 51.5
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
[2022-12-30 15:23] LABS: UTC Influenza A Antigen Negative (Negative); UTC Strep Screen (Rapid) Negative (Negative)
[2022-12-30 15:24] LABS: UTC Influenza B Antigen Negative (Negative)
[2022-12-30 15:28] VITALS: BP 149/77; PULSE 74; RESP 20; TEMP 36.9; O2SAT 97
== END 2022-12-30 15:30 | disposition home or self-care (01) ==
PROVIDERS: Emergency Provider Nurse Practitioner Family; PCP Family Medicine
DX: J01.90 Acute sinusitis, unspecified (principal); R05.1 Acute cough; R11.0 Nausea; R50.9 Fever, unspecified; R07.0 Pain in throat
CPT/HCPCS: 87804; 87880; 99212; 99214; G0463

== ENCOUNTER 2023-08-13 18:49 | Emergency (ER) | payer MEDICAID, SELFPAY ==
[2023-08-13 18:51] VITALS: BP 173/107; PULSE 83; RESP 14; TEMP 37.2; O2SAT 97; BMI 47.2
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
[2023-08-13 19:22] VITALS: BP 167/98; PULSE 80; RESP 14; TEMP 37.2; O2SAT 97
== END 2023-08-13 19:25 | disposition home or self-care (01) ==
PROVIDERS: Emergency Provider Student in an Organized Health Care Education/Training Program; PCP Family Medicine
DX: S06.0X0A Concussion without loss of consciousness, initial encounter (principal); F17.210 Nicotine dependence, cigarettes, uncomplicated; K21.9 Gastro-esophageal reflux disease without esophagitis; I10 Essential (primary) hypertension; E78.5 Hyperlipidemia, unspecified; V49.40XA Driver injured in collision with unspecified motor vehicles in traffic accident, initial encounter; Y92.410 Unspecified street and highway as the place of occurrence of the external cause
CPT/HCPCS: 99283

== ENCOUNTER → 2023-08-17 15:17 | Outpatient (CLI) | payer MEDICAID, SELFPAY ==
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
== END ==
PROVIDERS: PCP Family Medicine; Visit Provider Nurse Practitioner Family
DX: S09.90XA Unspecified injury of head, initial encounter (principal); V89.2XXA Person injured in unspecified motor-vehicle accident, traffic, initial encounter
CPT/HCPCS: 70450

== ENCOUNTER 2023-10-23 13:00 | Outpatient (RCR) | payer MEDICAID, SELFPAY | END 2023-11-14 10:09 | disposition home or self-care (01) | LOC: PT 13:00 | PROVIDERS: PCP Family Medicine; Visit Provider Orthopaedic Surgery | DX: S16.1XXA Strain of muscle, fascia and tendon at neck level, initial encounter (principal); S29.012A Strain of muscle and tendon of back wall of thorax, initial encounter; S39.012A Strain of muscle, fascia and tendon of lower back, initial encounter | CPT/HCPCS: 97110; 97163 ==

== ENCOUNTER 2024-11-28 20:46 | Emergency (ER) | payer OTHER, SELFPAY ==
[2024-11-28 21:00] VITALS: BP 173/88; PULSE 84; RESP 20; TEMP 36.9; O2SAT 98; BMI 48.8
--- NOTE | 2024-11-28 21:13 | ECG_ITS ---
APPROVED REPORT Exam: Resting ECG HR:82 bpm ECG Measurements Heart Rate 82 AXES PA 209 P 62 QRSd 105 QRS -43 QT 409 T 25 QTc 448 Conclusion SINUS RHYTHM LEFT AXIS DEVIATION [QRS AXIS < -30] ABNORMAL ECG Electronically signed by : DAMIEN ETNORIO, 11/30/2024 16:56:49
--- NOTE | 2024-11-28 21:15 | PC.NURSE ---
Pt blood sugar is 85 at this time.
--- NOTE | 2024-11-28 21:16 | PC.NURSE ---
Patient taken to treatment room 5 s/p triage. Provider made aware of presenting concerns and immediately at bedside. Report given to NASH Nance at bedside.
[2024-11-28 21:19] VITALS: BP 162/86; PULSE 77; RESP 20; O2SAT 97
--- NOTE | 2024-11-28 21:22 | CT_ITS ---
PROCEDURE INFORMATION: Exam: CT Head Without Contrast Exam date and time: 11/28/2024 9:55 PM Age: 33 years old Clinical indication: Weakness, facial; Additional info: New onset seizure TECHNIQUE: Imaging protocol: Computed tomography of the head without contrast. Radiation optimization: All CT scans at this facility use at least one of these dose optimization techniques: automated exposure control; mA and/or kV adjustment per patient size (includes targeted exams where dose is matched to clinical indication); or iterative reconstruction. COMPARISON: CT HEAD/BRAIN WO CON 08/17/2023 3:19 PM FINDINGS: Brain: Normal. No hemorrhage. Unremarkable white matter. No mass effect. Cerebral ventricles: No ventriculomegaly. Paranasal sinuses: Mucosal thickening noted in the maxillary sinuses. Mastoid air cells: Visualized mastoid air cells are well aerated. Bones: Unremarkable. No acute fracture. Soft tissues: Unremarkable. IMPRESSION: 1. No acute intracranial abnormality. 2. Chronic maxillary sinus disease
--- NOTE | 2024-11-28 21:22 | CT_ITS ---
PROCEDURE INFORMATION: Exam: CTA Neck With Contrast Exam date and time: 11/28/2024 9:57 PM Age: 33 years old Clinical indication: Weakness; Additional info: New onset seizure TECHNIQUE: Imaging protocol: Computed tomographic angiography of the neck with contrast. Exam focused on the cervical segments of the vasculature. 3D rendering (Not supervised by radiologist): MIP and/or 3D reconstructed images were created by the technologist. Radiation optimization: All CT scans at this facility use at least one of these dose optimization techniques: automated exposure control; mA and/or kV adjustment per patient size (includes targeted exams where dose is matched to clinical indication); or iterative reconstruction. Contrast material: ISOVUE; Contrast volume: 80 ml; Contrast route: INTRAVENOUS (IV); COMPARISON: CT ANGIO HEAD 11/28/2024 9:57 PM FINDINGS: Right common carotid artery: No stenosis. No dissection or occlusion. Right internal carotid artery: No stenosis of the extracranial segment. No dissection or occlusion. Right external carotid artery: No occlusion or stenosis of the origin. Left common carotid artery: No stenosis. No dissection or occlusion. Left internal carotid artery: No stenosis of the extracranial segment. No dissection or occlusion. Left external carotid artery: No occlusion or stenosis of the origin. Right vertebral artery: No stenosis. No dissection or occlusion. Left vertebral artery: No stenosis. No dissection or occlusion. Soft tissues: Normal. No significant soft tissue swelling. Bones/joints: No acute fracture. IMPRESSION: No stenosis or occlusion. REFERENCES: NASCET CRITERIA. The degree of stenosis in the cervical segment of the internal carotid artery is based on NASCET criteria. Normal is no stenosis. Mild is less than 50% stenosis. Moderate is 50-69% stenosis. Severe is 70% to 99% stenosis. Total occlusion is no detectable patent lumen.
--- NOTE | 2024-11-28 21:22 | CT_ITS ---
PROCEDURE INFORMATION: Exam: CTA Head With Contrast, Arteriography Exam date and time: 11/28/2024 9:57 PM Age: 33 years old Clinical indication: Weakness; Additional info: New onset seizure TECHNIQUE: Imaging protocol: Computed tomographic angiography of the head with contrast. Exam focused on the arteries. 3D rendering (Not supervised by radiologist): MIP and/or 3D reconstructed images were created by the technologist. Radiation optimization: All CT scans at this facility use at least one of these dose optimization techniques: automated exposure control; mA and/or kV adjustment per patient size (includes targeted exams where dose is matched to clinical indication); or iterative reconstruction. Contrast material: ISOVUE; Contrast volume: 80 ml; Contrast route: INTRAVENOUS (IV); COMPARISON: CT ANGIO HEAD 11/28/2024 9:57 PM FINDINGS: ANTERIOR CIRCULATION: Right internal carotid artery: Intracranial segment is patent with no significant stenosis. No aneurysm. Right middle cerebral artery: No occlusion or significant stenosis. No aneurysm. Right anterior cerebral artery: No occlusion or significant stenosis. No aneurysm. Left internal carotid artery: Intracranial segment is patent with no significant stenosis. No aneurysm. Left middle cerebral artery: No occlusion or significant stenosis. No aneurysm. Left anterior cerebral artery: No occlusion or significant stenosis. No aneurysm. POSTERIOR CIRCULATION: Right vertebral artery: No occlusion or significant stenosis. No aneurysm. Left vertebral artery: No occlusion or significant stenosis. No aneurysm. Basilar artery: No occlusion or significant stenosis. No aneurysm. Right posterior cerebral artery: No occlusion or significant stenosis. No aneurysm. Left posterior cerebral artery: No occlusion or significant stenosis. No aneurysm. Brain: No definite mass, mass effect, or midline shift. Cerebral ventricles: No ventriculomegaly. Bones/joints: Unremarkable. No acute fracture. Soft tissues: Unremarkable. IMPRESSION: No large vessel stenosis or occlusion.
[2024-11-28 21:31] LABS: Basophils % 0.6 % (0.1-2.0); Eosinophils # 0.2 K/mm3 (0.0-0.4); Eosinophils % 2.9 % (0.1-12.0); Hematocrit 42.9 % (42.0-52.0); Hemoglobin 14.6 g/dL (14.1-18.0); Lymphocytes # 1.8 K/mm3 (0.7-4.5); Mean Corpuscular Hemoglobin 28.5 pg (27.0-31.2); Mean Corpuscular Volume 83.6 fl (80-94); Mean Platelet Volume 10.5 fl (7.4-10.4); Monocytes # 0.4 K/mm3 (0.1-1.0); Monocytes % 5.5 % (1.7-9.3); Neutrophils # 4.8 K/mm3 (1.8-7.8); Neutrophils % 65.9 % (37.0-80.0); Platelet Count 186 K/mm3 (142-424); Red Blood Count 5.13 M/mm3 (4.60-6.20); Red Cell Distribution Width 12.4 % (11.5-17.5); White Blood Count 7.2 K/mm3 (4.8-10.8)
[2024-11-28 21:37] LABS: Albumin Level 4.6 g/dl (3.5-5.0); Chloride 103 mmol/L (98-107); Potassium 3.7 mmoL/L (3.5-5.1); Sodium 139 mmol/L (136-145)
[2024-11-28 21:38] LABS: VBG Base Excess 0.8 mmol/L (-2.4-2.3); VBG HCO3 24.7 mmol/L (23-30); VBG Oxygen Saturation 96.2 % (50-70); VBG PCO2 35.9 mmol/L (35-51); VBG PH 7.46 mmol/L (7.31-7.41); VBG PO2 77.1 mmol/L (28-40); VBG Total CO2 25.8 mmol/L (23-27)
[2024-11-28] MEDS: levETIRAcetam 2,000 MG in 0.9 % SODIUM CHLORIDE 100 ML 240 MG IV ×2 (21:38→22:48)
--- NOTE | 2024-11-28 21:38 | HMH.EDGENADL ---
Discharge Plan Disposition Patient Disposition: Xfer Other Condition: Good Chief Complaint: Neuro Symptoms/Deficit Prescriptions Prescriptions: No Action benazepril-hydrochlorothiazide 20-12.5 mg tablet 1 tab PO DAILY Qty: 90 3RF acetaminophen [Tylenol Extra Strength] 500 mg tablet 1,000 mg PO BID albuterol sulfate 90 mcg/actuation HFA aerosol inhaler 1 inh inhalation QID Qty: 6.7 2RF bupropion HCl 100 mg tablet 100 mg PO QAM Qty: 30 1RF carvedilol 12.5 mg tablet 12.5 mg PO BID Qty: 180 2RF atorvastatin 20 mg tablet See Rx Instructions .ROUTE .COMPLEX Qty: 90 3RF Dose Instruction: 20 MG ORALLY DAILY Rx Instructions: 20 MG ORALLY DAILY amlodipine 10 mg tablet 10 mg PO DAILY Qty: 30 2RF bupropion HCl 200 mg tablet sustained-release 12 hr 200 mg PO BID 90 Days Qty: 180 1RF Referrals Follow up/Referrals: Nikhil Buckner MD [Primary Care Provider] - See instructions Clinical Impressions Clinical Impression: Status epilepticus Print Language Print Language: Faroese Discharge ED Provider: Alice Nguyen General Adult HPI General Chief complaint: Neuro Symptoms/Deficit Stated complaint: Facial twitching,right eye blurrie numb,neck Time Seen by Provider: 11/28/24 21:09 Mode of Arrival: Ambulatory Source of Information: Patient Limitations: No Limitations Description of Symptoms (Recalled from ER Triage Doc. by RN): Patient presents with . Patient states, I'm a little messed up when arriving to triage. Patient and state the patient has been having right facial ticks. Patient's states that his tongue is now bleeding from the episodes of grinding his teeth. states the patient stops mid sentence. Paitent endorses dizziness. state the patient has these episodes, won't talk, grinds his teeth, and it looks like his neck spasms. Denies a history of seizures. Patient states his right eye vision is blurry and the right side of his face is numb. also reports intermittent unsteady gait. Endorses a headache and states he was sent home from work for a nose bleed. Patient and report the symptom onset to be last night. Patient not within window. Stroke alert deferred. History of Present Illness HPI narrative: Patient is a 33-year-old past medical history significant for hypertension and obesity presents to the emergency department with right facial tics. Yesterday around 5 PM patient started having right lower tics and grinding of his teeth he will stop midsentence with associated dizziness and headache with the episode his neck also jerks to the right side. Family history positive for seizure disorder. During these episodes patient will also have blurry vision on the right side and his face will feel numb. Patient uses THC but denies other drug use. Denies trauma. No fevers or chills. No weakness numbness or tingling of the extremities. Denies alcohol use daily. Takes Wellbutrin for depression. PCP increased dose of Wellbutrin 1 week ago. Related Data Home Medications ?Medication ?Instructions ?Recorded ?Confirmed acetaminophen 500 mg tablet 1,000 mg PO BID 05/16/23 11/20/24 (Tylenol Extra Strength) Previous Rx's ?Medication ?Instructions ?Recorded benazepril 20 1 tab PO DAILY #90 tabs 08/22/22 mg-hydrochlorothiazide 12.5 mg tablet carvedilol 12.5 mg tablet 12.5 mg PO BID HTN #180 tabs 08/13/23 albuterol sulfate 90 mcg/actuation 1 inh inhalation QID #6.7 grams 09/20/23 aerosol inhaler atorvastatin 20 mg tablet See Rx Instructions .Route 12/08/23 .COMPLEX #90 tabs amlodipine 10 mg tablet 10 mg PO DAILY #30 tabs 01/07/24 bupropion HCl 200 mg tablet,12 hr 200 mg PO BID 90 days #180 ea 01/19/24 sustained-release bupropion HCl 100 mg tablet 100 mg PO QAM #30 tabs 11/20/24 Allergies Allergy/AdvReac Type Severity Reaction Status Date / Time No Known Allergies Allergy Verified 11/21/24 12:34 [facility] Disclaimer: The information contained in this section may have been updated after the patient was seen, as this information can be updated by other users. Medical History Tympanosclerosis Otalgia, left ear GERD (gastroesophageal reflux disease) HLD (hyperlipidemia) Abnormal electrocardiography HTN (hypertension) Surgical History History of dental surgery History of shoulder surgery Family History Mother Diabetes Grandfather Heart attack Father Coronary artery disease Brother Heart attack Social History Smoking Status: Current every day smoker tobacco type: cigarettes packs per day: 1 alcohol intake: former substance use type: denies use current occupational status: employed Travel in the last 8 weeks: None household members: spouse and children housing: house marital status: Have you lived/traveled outside [place] in past 30 days?: No Contact w/someone who lives/traveled outside US past 30 days?: No Exposure to someone with infectious disease in past 14 days?: No Do you have a fever (greater than 100.4 F or 38 C)?: No Have you tested positive for COVID-19: No Exposed to someone with COVID-19 in past 14 days?: No Do you have a sore throat?: No Do you have a cough?: No Do you have any weakness?: No Do you have any diarrhea?: No Are you experiencing any unusual bleeding?: No Do you have any muscle aches/pain?: No Do you have any abdominal pain?: No Are you experiencing loss of taste or smell?: No Other Medical History Have you received the Flu Vaccine for this season: No Have you received the Pneumonia Vaccine: No ROS Obtained: Yes All systems reviewed & no additional complaints except as documented Physical Exam General General appearance: alert and in no apparent distress Comment: Every 5 to 10 seconds right lower face contraction with associated right head jerking without postictal period but pausing speech during episodes Head Head exam: atraumatic and normocephalic Eye Eye exam: Present normal appearance, PERRL and EOMI ENT ENT exam: Present normal exam, mucous membranes moist and other (Excoriations right tongue) Neck Neck exam: Present normal inspection and full ROM Respiratory Respiratory exam: Absent respiratory distress Cardiovascular Cardiovascular exam: Present regular rate and normal rhythm Abdominal Exam Abdominal exam: Present soft; Absent tenderness Neurological Exam Neurological exam: Present alert, oriented X3, CN II-XII intact and normal gait Medical Decision Making Medical Records Screening: Per USPSTF and CDC recommendations, given the prevalence of disease in our region, it is our hospital?s policy to screen for HIV and viral Hepatitis for all patients aged 18 and over and those with ongoing risk factors. Iron Inquiry Pt receiving controlled substance: No Vital Signs: 11/28/24 21:00 11/28/24 21:19 11/28/24 21:42 Temperature 98.5 F Temperature Source Temporal Artery Scan Pulse Rate 77 69 Pulse Rate [Radial] 84 Respiratory Rate 20 20 16 Blood Pressure 162/86 H 156/96 H Blood Pressure [R Arm] 173/88 H Blood Pressure Mean [R Arm] 116 Blood Pressure Source [R Arm] Automatic Cuff Blood Pressure Position 02 Sat by Pulse Oximetry 98 97 96 Oxygen Delivery Method Room Air 11/28/24 22:12 11/28/24 22:24 Temperature Temperature Source Pulse Rate 71 71 Pulse Rate [Radial] Respiratory Rate 18 16 Blood Pressure 147/82 H 147/82 H Blood Pressure [R Arm] Blood Pressure Mean [R Arm] Blood Pressure Source [R Arm] Blood Pressure Position Sitting 02 Sat by Pulse Oximetry 95 97 Oxygen Delivery Method Room Air Lab Data Lab Results 11/28/24 21:22: VBG pH 7.46 H, VBG pCO2 35.9, VBG pO2 77.1 H, VBG HCO3 24.7, VBG Total CO2 25.8, VBG O2 Saturation 96.2 H, VBG Base Excess 0.8, VBG Lactic Acid 2.0 11/28/24 21:24: WBC 7.2, RBC 5.13, Hgb 14.6, Hct 42.9, MCV 83.6, MCH 28.5, MCHC 34.0, RDW 12.4, Plt Count 186, MPV 10.5 H, Neut % (Auto) 65.9, Lymph % (Auto) 25.0, [place] % (Auto) 5.5, Eos % (Auto) 2.9, Baso % (Auto) 0.6, Neut # (Auto) 4.8, Lymph # (Auto) 1.8, [place] # (Auto) 0.4, Eos # (Auto) 0.2, Baso # (Auto) 0.0, Sodium 139, Potassium 3.7, Chloride 103, Carbon Dioxide 27, Anion Gap 12.7, BUN 12, Creatinine 1.00, Estimated Creat Clear 116, Estimated GFR 87, Est GFR ( Amer) 105, Glucose 94, Calcium 8.7, Total Bilirubin 0.9, AST 52, ALT 55, Alkaline Phosphatase 59, Total Creatine Kinase 684 H*, Total Protein 7.3, Albumin 4.6, Globulin 2.7, Albumin/Globulin Ratio 1.7, TSH 2.94, Free T4 0.93, Plasma/Serum Alcohol < 10, HIV Ag/Ab Combo Qual Negative 11/28/24 22:20: Urine Opiates Screen Negative, Urine Methadone Screen Negative, Ur Barbituates Screen Negative, Ur Phencyclidine Scrn Negative, Ur Amphetamines Screen Negative, U Benzodiazepines Scrn Negative, Urine Cocaine Screen Negative, U Marijuana (THC) Screen Positive H 11/28/24 21:24 11/28/24 21:24 Orders (Tests/Meds): ED MEDICATIONS Discontinued Medications Generic Name Dose Route Start Last Admin Trade Name Freq PRN Reason Stop Dose Admin Levetiracetam 2,000 mg/ Sodium 120 mls @ 240 mls/hr 11/28/24 21:27 11/28/24 21:38 Chloride IV 11/28/24 21:28 240 mls/hr ONCE ONE Administration Levetiracetam 2,000 mg/ Sodium 120 mls @ 240 mls/hr 11/28/24 22:43 11/28/24 22:48 Chloride IV 11/28/24 22:44 240 mls/hr ONCE ONE Administration Iopamidol 80 ml 11/28/24 21:52 11/28/24 22:01 Iopamidol-370 (76%);100ml Bottle IV 11/28/24 21:53 80 ml ONCE ONE Administration Sodium Chloride 50 ml 11/28/24 21:52 11/28/24 22:01 0.9 % Sodium Chloride 50 Ml Vial IV 11/28/24 21:53 50 ml ONCE ONE Administration Sodium Chloride 10 ml 11/28/24 21:52 11/28/24 22:01 Sodium Chloride 0.9% 10ml Syr (Rad Only) IV 11/28/24 21:53 10 ml ONCE ONE Administration ORDERS Category Date Time Status CT angio head Stat Cat Scan 11/28/24 21:[address] angio neck Stat Cat Scan 11/28/24 21:[address] head/brain wo con Stat Cat Scan 11/28/24 21:22 Taken Complete Blood Count Auto Diff Stat Lab 11/28/24 21:24 Completed Comprehensive Metabolic Panel Stat Lab 11/28/24 21:24 Completed Creatine Kinase Stat Lab 11/28/24 21:24 Completed Drug Screen,Urine Stat Lab 11/28/24 22:20 Completed Ethyl Alcohol Stat Lab 11/28/24 21:24 Completed Free T4 (Free Thyroxine) Stat Lab 11/28/24 21:24 Completed HIV Combo Stat Lab 11/28/24 21:24 Completed Hepatitis C Ab Qual. W/ RFX Stat Lab 11/28/24 21:24 Received Thyroid Stimulating Hormone Stat Lab 11/28/24 21:24 Completed Venous Blood Gas Stat RT 11/28/24 21:22 Completed Medical Decision Narrative: In summary, this 33-year-old male presents to the emergency department today with concern for seizure-like activity. On initial evaluation patient is hemodynamically stable afebrile saturating appropriately on room air no acute distress. Differential diagnosis includes but is not limited to focal status epilepticus, tic disorder, stroke, epilepsy, medication side effect, intracranial mass. Based on these concerns, I ordered CBC CMP CK VBG TSH T4 drugs abuse screen CT head CTA head. Patient received 4 g of Keppra for treatment for status epilepticus. Labs personally reviewed demonstrate elevated CK XR personally interpreted demonstrates []. CT imaging personally interpreted demonstrate no large vessel occlusion or mass I had an interactive discussion with Dr. Hernandez through neurology at who recommended continued treatment of status epilepticus by transfer to emergency department for evaluation by neurology and EEG. On reassessment patient has decreased frequency of focal tics after 4 g of Keppra. Has an episode approximately once every 5 to 10 minutes. Patient transferred to ED for further evaluation by neurology Critical Care Critical Care Time Critical Care Time: No
[2024-11-28 21:40] LABS: Alanine Aminotransferase 55 U/L (12-78); Albumin/Globulin Ratio 1.7 (1.1-1.8); Alkaline Phosphatase 59 U/L (38-126); Anion Gap 12.7 mEq/L (5-15); Aspartate Amino Transferase 52 U/L (17-59); Bilirubin,Total 0.9 mg/dl (0.2-1.3); Blood Urea Nitrogen 12 mg/dl (9-20); Calcium 8.7 mg/dl (8.4-10.2); Carbon Dioxide 27 mmol/L (22.0-30.0); Creatine Kinase 684 U/L (55-170); Creatinine Clearance Estimated 116 mL/min (50-200); Estimated Glomerular Filt Rate 87 ml/min (>60); Ethyl Alcohol < 10 mg/dl (0-10); GFR (African American) 105 ML/MIN (>60); Globulin 2.7 g/dL (1.3-3.2); Glucose 94 mg/dl (74-100); Total Protein,Serum 7.3 g/dl (6.3-8.2)
[2024-11-28 21:42] VITALS: BP 156/96; PULSE 69; RESP 16; O2SAT 96
--- NOTE | 2024-11-28 21:52 | PC.NURSE ---
n-5mins Pt unhooked from keppra to take to CT, risk outweighs benefits.
[2024-11-28] MEDS: IOPAMIDOL-370 (76%);100ML BOTTLE 80 ML IV (22:01)
[2024-11-28] MEDS: 0.9 % SODIUM CHLORIDE 50 ML VIAL IV (22:01)
[2024-11-28] MEDS: SODIUM CHLORIDE 0.9% 10ML SYR (RAD ONLY) 10 ML IV (22:01)
[2024-11-28 22:10] LABS: Thyroid Stimulating Hormone 2.94 uIU/mL (0.465-4.68)
[2024-11-28 22:11] LABS: Free T4 (Free Thyroxine) 0.93 ng/dl (0.78-2.19)
[2024-11-28 22:12] VITALS: BP 147/82; PULSE 71; RESP 18; O2SAT 95
--- NOTE | 2024-11-28 22:16 | PC.NURSE ---
pt returned from ct scan without incident. Given urinal and asked to provide urine for sampling.
[2024-11-28 22:24] VITALS: BP 147/82; PULSE 71; RESP 16; O2SAT 97
--- NOTE | 2024-11-28 22:39 | PC.NURSE ---
Called transfer center at 22:17 for a neurology consult
[2024-11-28 22:42] LABS: Barbiturates Screen,Urine Negative ng/ml (<200); Benzodiazepines Screen,Urine Negative ng/ml (<200)
[2024-11-28 22:43] LABS: Amphetamine/Metha Screen,Urine Negative ng/ml (<1000)
[2024-11-28 22:44] LABS: Cocaine Screen,Urine Negative ng/ml (<300); Methadone Screen,Urine Negative ng/ml (<300)
[2024-11-28 22:45] LABS: Cannabinoid Screen,Urine Positive ng/ml (<50)
[2024-11-28 22:46] LABS: Opiate Screen,Urine Negative ng/ml (<300); Phencyclidine Screen,Urine Negative ng/ml (<25)
[2024-11-28 23:04] LABS: HIV Combo NEGATIVE (Negative)
[2024-11-28 23:12] LABS: Hepatitis C Ab Qual. W/ RFX NEGATIVE (Negative)
--- NOTE | 2024-11-28 23:12 | PC.NURSE ---
report given to Jory CAO at [facility]
--- NOTE | 2024-11-28 23:44 | PC.NURSE ---
EMS notified for transport
[2024-11-28 23:57] VITALS: BP 135/81; PULSE 77; RESP 18; TEMP 36.8; O2SAT 98
== END 2024-11-29 00:03 | disposition other institution (70) ==
PROVIDERS: Emergency Provider Student in an Organized Health Care Education/Training Program; PCP Family Medicine
DX: G40.901 Epilepsy, unspecified, not intractable, with status epilepticus (principal); G51.31 Clonic hemifacial spasm, right; H53.8 Other visual disturbances; R42 Dizziness and giddiness; R20.2 Paresthesia of skin; R26.81 Unsteadiness on feet; R04.0 Epistaxis; R51.9 Headache, unspecified; F17.210 Nicotine dependence, cigarettes, uncomplicated
CPT/HCPCS: 70450; 70496; 70498; 80053; 80307; 80320; 82550; 82803; 84439; 84443; 85025; 86803; 87389; 93005; 96374; 96375; 99285; G0480; J1953; Q9967

== ENCOUNTER 2024-12-10 10:04 | Outpatient (CLI) | payer OTHER, SELFPAY ==
--- NOTE | 2024-12-10 10:05 | US_ITS ---
FINAL REPORT TECHNIQUE: Bladder volumes were estimated based on 3 dimensional measurements, pre- and postvoid. CLINICAL HISTORY: Post void residual COMPARISON: None FINDINGS: ULTRASOUND BLADDER WITH POST VOID RESIDUAL Prevoid bladder volume is normal and 177.44 mls. There is no postvoid residual. There is no obvious bladder wall mass. IMPRESSION: Estimated bladder volumes as above with no postvoid residual. Reviewed, Interpreted and Dictated by Hayley Mooney MD Transcribed by Sofya Murphy Authenticated and [facility]
== END 2024-12-10 23:59 | disposition home or self-care (01) ==
LOC: RAD 10:05
PROVIDERS: PCP Family Medicine; Visit Provider Urology
DX: N32.81 Overactive bladder (principal)
CPT/HCPCS: 76857

== ENCOUNTER 2025-06-04 14:06 | Outpatient (CLI) | payer OTHER, SELFPAY ==
--- OUTSIDE RECORDS SUMMARY | 2025-04-16 10:20 | XMS_ITS | Encounter Summary ---
Author Organization Healthcare Address [address] [id number] Care Team Providers Care Case Liner Name Role Phone Anju Foreman APRN Primary Care Provider [phone]- [phone] Chad Maki MD Unavailable [phone] Reason for Referral * Consultation (Routine) - Authorized Specialty Diagnoses / Procedures Referred By Alen cowan Referred To Contact Diagnoses Nocturnal enuresis Tammy Foreman MD [address] [facility] [address] [place] [address] Phone: tel: fax: Referral ID Status Reason Start Date Expiration Date V isits Requested Visits Authorized [id number] Authorized 04/16/2025 10/16/2026 1 1 Reason for Visit * Reason Comments Nocturnal Enuresis * Consultation (Routine) - Closed Specialty Diagnoses / Procedures Referred By Alen cowan Referred To Contact Endocrinology Diagnoses History of nocturnal enuresis Dona Cameron, TAISHA, DNP [address] [facility] [address] [place] [address] Phone: tel: fax: Referral ID Status Reason Start Date Expiration Date V isits Requested Visits Authorized [id number] Closed Specialty Services Required 03/30/2025 09/29/2026 1 1 Encounter Details Date Type Department Care Team (Late st Contact Info) Description 04/16/2025 10:20 AM EDT Office Visit [facility] [address] [place] [address] Tammy Foreman MD [address] [facility] [address] [place] [address] Nocturnal enuresis (Primary Dx) Social History Tobacco Use Types Packs/Day Years Used Date Smoking Tobacco: Never Passive Smoke Exposure: Never Smokeless Tobacco: Never Alcohol Use Standard Drinks/Week Comments Not Currently 0 (1 standard drink = 0.6 oz pur e alcohol) PHQ-2 Answer Date Recorded Patient Health Questionnaire-2 Score 0 03/30/2025 PHQ-9 Answer Date Recorded Patient Health Questionnaire-9 Score 0 02/16/2025 AUDIT-C Answer Date Recorded Q1: How often do you have a drink containing alcohol? Never 04/16/2025 Q2: How many drinks containi ng alcohol do you have on a typical day when you are drinking? Patient does not drink Q3: How often do you have si x or more drinks on one occasion? Never 04/16/2025 Sex and Gender Information Value Date Recorded Sex Assigned at Male 11/29/2024 4:00 AM EST Legal Sex Male 1:08 AM EDT Gender Identity Not on file Sexual Orientation Not on file documented as of this encounter Last Filed Vital Signs Vital Sign Reading Time Taken Comments Blood Pressure 135/80 04/16/2025 10:15 AM EDT Pulse 68 04/16/2025 10:15 AM EDT Temperature - - Respiratory Rate - - Oxygen Saturation - - Inhaled Oxygen Concentration - - Weight 158 kg (348 lb 1.7 oz) 04/16/2025 10:15 A M EDT Height 182.9 cm (6') 04/16/2025 10:15 AM EDT Body Mass Index 47.21 04/16/2025 10:15 AM EDT documented in this encounter Functional Status * AUDIT-C Score Answer Date of Assessment Author 0 04/16/2025 10:17 AM EDT Shy Yip * Question Answer Date of Assessment Author Q1: How often do you have a drink containing alcohol? Never 04/16/2025 10:17 AM EDT Lyla Yip Q2: How many drinks containing alcohol do you have on a typical day when you are drinking? Patient does not drink 04/16/2025 10:17 AM EDT Lyla Yip Q3: How often do you have six or more drinks on one occasion? Never 04/16/2025 10:17 AM Lyla Hylton documented as of this encounter Miscellaneous Notes * Progress Notes - Enmanuel Mckenzie MBBS - 04/16/2025 10:20 AM EDT Subjective Brigido Beaver is a 34 y.o., male about whom I am asked to consult by Dona Cameron APRN, * for nocturnal enuresis and possibility of diabetes insipidus. Patient has past medical history-significant for focal seizures, complicated migraine, depression, obstructive sleep apnea on CPAP and obesity. The patient is accompanied by his who provided additional history. Patient complains of increased urination at night with started when he was in school. He has had problems with nocturnal enuresis since childhood. He does not wake up during the night when these events happen, on waking up in the morning when hisalarm goes off he states he is in puddles of urine on his bed and is drenched He has been having these events almost daily for the past 3 months. He was on Wellbutrin previously, which help with nocturnal enuresis but ended up causing seizures, so he discontinued it. He makes efforts to avoid these symptoms which include stopping fluids at around 7-8 pm before going to bed at around 10-11 pm. He also tries to void prior to bedtime. During daytime, he states that he does not have any episodes of incontinence. He denies drinking excessive fluids during the day. He was started on trospium 20 mg daily for his nocturnal enuresis but it ended up making his problems worse so trospium was stopped. Subsequently he was referred to endocrinology to further evaluate his nocturnal enuresis. The following portions of the chart were reviewed this encounter and updated as appropriate: Review of Systems Constitutional: Positive for activity change. HENT: Negative. Eyes: Negative. Respiratory: Negative. Cardiovascular: Negative. Gastrointestinal: Negative. Endocrine: Positive for polydipsia. Genitourinary: Positive for enuresis. Musculoskeletal: Negative. Skin: Negative. Allergic/Immunologic: Negative. Neurological: Negative. Hematological: Negative. Psychiatric/Behavioral: Negative. Objective BP 135/80 Pulse 68 Ht 1.829 m (6') Wt 158 kg (348 lb 1.7 oz) BMI 47.21 kg/m?? General: no acute distress, not anxious appearing, speaking comfortably HEENT: normocephalic, conjunctiva clear Resp: good inspiratory effort, no use of accessory muscles, no increased work of breathing Cardiovascular: Normal rate, regular rhythm, no murmurs/rubs/gallops Abdomen: Soft, nondistended, non tender, no organomegaly Skin: no rash on exposed areas Neuro: Alert and oriented x 3, interactive Psych: Pleasant, normal affect LABS: Latest Reference Range & Units 11/29/24 06:11 Specific [place], Urine 1.005 - 1.030 >1.030 (H) (H): Data is abnormally high Latest Reference Range & Units 11/29/24 05:31 12/02/24 15:12 02/16/25 09:50 Sodium 136 - 145 mmol/L 139 142 141 IMAGING: N/a Assessment/Plan Patient is a 34-year-old male with past history of focal seizures, complicated migraine, depression, obstructive sleep apnea on CPAP and obesity who has presented for evaluation of nocturnal enuresiswhich started in childhood and possibility of diabetes insipidus. #Nocturnal Enuresis: Evaluated by Urology, started on trospium which ended up worsening his symptoms and was stopped Patient does not wake up at night to urinate/to drink fluids, low daytime symptoms Has tried stopping drinking fluids before sleeping/voiding before sleeping, but these have not helped Lab evaluation shows increased urine specific gravity and normal sodium levels which decreases likelihood of diabetes insipidus as in DI, hyponatremia and dilute urine are noted Patient denies polydipsia and states that his problems began in childhood, which also decrease his likelihood of diabetes insipidus PLAN History, clinical picture and lab evaluation rule out diabetes insipidus Recommended patient to return back to urology for further evaluation/trying alternative treatments Recommend asking them to refer to pediatric urology for help with nocturnal enuresis Also recommended to try bed alarms at night for nocturnal enuresis RTC as needed, no follow up required I have answered my patient's questions to the best of my ability and have encouraged him to call with any additional questions. I would like to thank Dona Cameron, UTILITY LOCATE TECHNICIAN, * for the opportunity to participate in the care of Brigido Beaver KEVIN Light, PGY 5, Endocrinology Fellow Cosigned by Tammy Foreman MD at 04/23/2025 10:46 AM EDT Associated attestation - Tammy Foreman MD - 04/23/2025 10:46 AM EDT I saw and evaluated the patient with the resident/fellow. I discussed the case with the resident/fellow and agree with the findings and plan as documented. documented in this encounter Plan of Treatment Scheduled Referrals Name Type Priority Associated Diagnoses Orde r Schedule Follow Up [facility] Outpatient Referral Routine Nocturnal enuresis Expected: 10/17/2025, Expires: 05/17/2026 documented as of this encounter Visit Diagnoses Diagnosis Nocturnal enuresis- Primary documented in this encounter Additional Health Concerns Assessment Noted Time PHQ-9 Depression Total Score: 0 02/17/20 8:42 AM EDT A fall risk assessment has been complete d for the patient 03/30/2025 3:56 PM EDT A Body Mass Index follow-up plan has been documented for the patient 04/23/2025 10:46 AM EDT documented as of this encounter Care Teams Case Liner Relationship Specialty Start Date End Date Ahsan Anjunickie Muñiz APRN [address] [place] [address] PCP - General 02/16/25 Chad Maki MD [id number] [place] [address] Consulting Physician Urology 02/16/25 documented as of this encounter
--- NOTE | 2025-06-04 14:09 | XR_ITS ---
FINAL REPORT CLINICAL HISTORY: L knee grinding in left knee x 4 days no sx COMPARISON: None FINDINGS: LEFT KNEE Three views demonstrate no acute fracture or dislocation. The joint spaces appear normal. No acute soft tissue abnormality is seen. IMPRESSION: No acute bony abnormality. Reviewed, Interpreted and Dictated by Alfred Ott MD Transcribed by Sofya Murphy Authenticated and [facility]
--- OUTSIDE RECORDS SUMMARY | 2025-06-04 14:20 | XMS_ITS | Encounter Summary ---
Author Organization [facility] Address [address] [place] [address] Care Team Providers Care Parts Remover Name Role Phone Nikhil Buckner MD Primary Care Provider Carly Anju Rosario APRN Primary Care Provider [phone] Chad Maki MD Unavailable [phone] Encounter Details Date Type Department Care Team (Late st Contact Info) Description 12/02/2024 Ophth Exam [facility] [address] [place] [address] Barrett Jolly MD [address] [id number] Social History Tobacco Use Types Packs/Day Years Used Date Smoking Tobacco: Never Smokeless Tobacco: Never Alcohol Use Standard Drinks/Week Comments Not Currently 0 (1 standard drink = 0.6 oz pur e alcohol) Sex and Gender Information Value Date Recorded Sex Assigned at Male 11/29/2024 4:00 AM EST Legal Sex Male 1:08 AM EDT Gender Identity Not on file Sexual Orientation Not on file documented as of this encounter Functional Status * Calculated C-SSRS Risk Score (Lifetime/Recent) Answer Date of Assessment Author No Risk Indicated 12/02/2024 4:49 PM Yarelis Humphrey RN * Question Answer Date of Assessment Author 1. Wish to be (Past 1 Month) No 025 4:49 PM Yarelis Humphrey, RN 2. Non-Specific Active Suici robinson Thoughts (Past 1 Month) No 12/02/2024 4:49 PM EST Kale Amaya RN 6. Suicidal Behavior (Lifetime) No 5 4:49 PM EST Yarelis Amaya RN documented as of this encounter Plan of Treatment Not on file documented as of this encounter Visit Diagnoses Not on filedocumented in this encounter Additional Health Concerns Assessment Noted Time A fall risk assessment has been complete d for the patient 12/02/2024 1:24 PM EST A Body Mass Index follow-up plan has been documented for the patient 12/02/2024 2:47 PM EST documented as of this encounter Care Teams Parts Remover Relationship Specialty Start Date End Date Nikhil Buckner MD PCP - General Family Medicine 11/29/24 02/15/25 Anju Foreman APRN [address] [place] [address] PCP - General 02/16/25 Chad Maki MD [address] [address] Consulting Physician Urology 02/16/25 documented as of this encounter
--- OUTSIDE RECORDS SUMMARY | 2025-06-04 14:20 | XMS_ITS | Clinical Summary ---
Author Organization [facility] Address [address] [place] [address] Care Team Providers Care Rn Neurosurgical Name Role Phone Anju Foreman APRN Primary Care Provider [phone] Chad aMki MD Unavailable [phone] Allergies No known active allergies Medications acetaminophen (Tylenol) 500 MG tablet Take 2 tablets (1,000 mg) by mouth as needed. Active topiramate (Topamax) 25 MG tabletIndicatio ns:Complicated migraine Take 1 tablet twice per day for 7 days. After this, take 2 tablets twice per day. 120 tablet 5 Active busPIRone (Buspar) 10 MG tablet Take 1 tablet by mouth 2 times a day. Active desvenlafaxine (Pristiq) 50 MG 24 hr tablet Take 1 tablet by mouth daily. Active trospium (Sanctura) 20 MG tablet Take 1 PO daily at night time. 30 tablet 2 Active Additional Information Patient not taking.Reported on 04/16/2025 Active Problems Problem Noted Date Diagnosed Date Complicated migraine 12/02/2024 Focal epilepsy 11/29/2024 Class III obesity with body mass index (BMI) of 40.0 or higher 11/29/2024 Encounters Date Type Department Care Team Description 05/16/2025 [facility] [address], [address] [place] [address] Dona Cameron, SALES AND MARKETING ANALYST, DNP 04/27/2025 [facility] [address], [address] [place] [address] Behzad Alvarez MD 04/16/2025 10:20 AM EDT Office Visit [facility] [address] [place] [address] Tammy Foreman MD Nocturnal enuresis (Primary Dx) 04/16/2025 Travel 03/30/2025 3:45 PM EDT [facility] [address], [address] [place] [address] Dona Cameron, SALES AND MARKETING ANALYST, DNP History of nocturnal enuresis (Primary Dx); Other urinary incontinence 03/30/2025 Travel from Last 3 Months Family History Medical History Relation Name Comments Anxiety and depression Brother 1 PTSD Brother 1 Anxiety and depression Brother 2 PTSD Brother 2 Diabetes Father Heart Problem Father Brain Aneurysm Maternal Grandmother Anxiety disorder Mother COPD Mother Cirrhosis Mother Depression Mother atrial septal defect Mother Heart attack Paternal Grandfather x3 Diabetes Sister 1 Relation Name Status Comments Brother 1 Brother 2 Alive Father Maternal Grandmother Mother Paternal Grandfather Sister 1 Sister 2 Alive Social History Tobacco Use Types Packs/Day Years Used Date Smoking Tobacco: Never Passive Smoke Exposure: Never Smokeless Tobacco: Never Tobacco Cessation:Counseling Given: Not Answered Alcohol Use Standard Drinks/Week Comments Not Currently [...] on file Sexual Orientation Not on file Last Filed Vital Signs Vital Sign Reading Time Taken Comments Blood Pressure 135/80 04/16/2025 10:15 AM EDT Pulse 68 04/16/2025 10:15 AM EDT Temperature 36.7 C (98.1 F) 03/30/2025 3:54 PM EDT Respiratory Rate 20 03/30/2025 3:54 PM EDT Oxygen Saturation 97% 03/30/2025 3:54 PM EDT Inhaled Oxygen Concentration - - Weight 158 kg (348 lb 1.7 oz) 04/16/2025 10:15 A M EDT Height 182.9 cm (6') 04/16/2025 10:15 AM EDT Body Mass Index 47.21 04/16/2025 10:15 AM EDT Plan of Treatment Health Maintenance Due Date Last Done Comments [facility]-HIV Screening 1991 [facility]-Hepatitis C Screening 1991 [facility]-/Child/Adol SDOH Screenings 1991 [facility]-Varicella Vaccines (1 of 2 - 13+ 2-dose series) 2004 [facility]- SDOH Screenings 2009 [facility]-Adult SDOH Screenings 2009 [facility]-DTaP,Tdap,and Td Vaccines (1 - Tdap) 2010 [facility]-Hepatitis B Vaccines (1 of 3 - 19+ 3-dose series) 2010 HPV Vaccines (1 - 3-dose SCDM series) 2018 [facility]-LHLOL-62 Vaccine (1 - 2023- season) 2024 [facility]-Influenza Vaccine (#1) 2025 [facility]-Depression Screening 03/30/2026 03/30/2025, 05/0 02/2025 [facility]-Zoster Vaccines (1 of 2) 2041 [facility]-Obesity Intervention Completed 025, 03/30/2025, 12/02/2024, Additional history exists [facility]-HIB Vaccines Aged Out No longer e ligible based on patient's age to complete this topic [facility]-Hepatitis A Vaccines Aged Out No longer eligible based on patient's age to complete this topic [facility]-IPV Vaccines Aged Out No longer e ligible based on patient's age to complete this topic [facility]-Pneumococcal Vaccine: Pediatrics (0 to 5 Years) and At-Risk Patients (6 to 49 Years) Aged Out No longer eligible based on patient's age to complete this topic [facility]-Rotavirus Vaccines Aged Out No lo nger eligible based on patient's age to complete this topic Procedures Procedure Name Priority Date/Time Associated Diagnosis Comments POC US BLADDER SCAN FOR VOLUME Routine 03/30/2025 4:07 PM EDT History of nocturnal enuresis Other urinary incontinence from Last 3 Months Results * POC US Bladder Volume (03/30/2025 4:07 PM EDT) Urine, Volume 0 mL IMAGING Anatomical Region Laterality Modality Other us Chad Maki MD IMG POINT OF CARE ULTRASOU ND Final Result from Last 3 Months Insurance [employer] Advance Directives * Full Code (Latest Code Status on File) Date Activated Date Inactivated Comments 11/29/2024 4:12 AM 11/29/2024 8:53 PM Question Answer Comments Patient has decision-making capacity? Yes Care Teams Rn Neurosurgical Relationship Specialty Start Date End Date Anju Foreman APRN [address] [place] [address] PCP - General 02/16/25 Chad Maki MD [address] [place] [address] Consulting Physician Urology 02/16/25
--- OUTSIDE RECORDS SUMMARY | 2025-06-04 14:20 | XMS_ITS | Encounter Summary ---
Author Organization Healthcare Address [address] [id number] Care Team Providers Care Feather Washer Name Role Phone Anju Foreman APRN Primary Care Provider [phone] Chad Maki MD Unavailable [phone] Encounter Details Date Type Department Care Team (Late st Contact Info) Description 04/27/2025 Telephone [facility] [address], [address] [place] [address] Behzad Alvarez MD [address] [phone] Social History Tobacco Use Types Packs/Day Years [...] on file documented as of this encounter Miscellaneous Notes * Telephone Encounter - Olimpia Hutchison - 05/05/2025 9:44 AM EDT Rescheduled and reminder mailed this date. * Telephone Encounter - Dot Pulido - 04/27/2025 12:38 PM EDT Patient Phone Message Reason for Call: Patient calling to r/s nothing currently available asking for TH if possible Best contact number and optimal time of day to reach caller: [phone] Note: Please do not reply to this message. Follow-up communication and further actions as a result of this message need to be communicated with the patient directly, if the patient is not active onMyChart. If the patient is active on MyChart, they will receive notification of the communication/outcome via TierPMt. documented in this encounter Plan of Treatment Not on file documented as of this encounter Visit Diagnoses Not on filedocumented in this encounter Additional Health Concerns Assessment Noted Time PHQ-9 Depression Total Score: 0 02/17/20 25 8:42 AM EDT A fall risk assessment has been complete d for the patient 03/30/2025 3:56 PM EDT A Body Mass Index follow-up plan has been documented for the patient 04/23/2025 10:46 AM EDT documented as of this encounter Care Teams Feather Washer Relationship Specialty Start Date End Date Anju Foreman APRN [address] [place] [address] PCP - General 02/16/25 Chad Maki MD [address] [facility] [address] [place] [address] Consulting Physician Urology 02/16/25 documented as of this encounter
--- OUTSIDE RECORDS SUMMARY | 2025-06-04 14:20 | XMS_ITS | Encounter Summary ---
Author Organization Healthcare Address [address] [place] [address] Care Team Providers Care Code And Test Clerk Name Role Phone Anju Foreman APRN Primary Care Provider [phone] Chad Maki MD Unavailable [phone] Encounter Details Date Type Department Care Team (Late st Contact Info) Description 02/19/2025 Results Follow-Up [facility] [address], [address] [place] [address] Dona Cameron, TAISHA, DNP [address] [place] [address] Social History Tobacco Use Types Packs/Day Years [...] as of this encounter Functional Status * AUDIT-C Score Answer Date of Assessment Author 0 04/16/2025 10:17 AM EDT Theodora Shy woody N * Question Answer Date of Assessment Author Q1: How often do you have a drink containing alcohol? Never 04/16/2025 10:17 AM EDT Lyla Yip N Q2: How many drinks containing alcohol do you have on a typical day when you are drinking? Patient does not drink 04/16/2025 10:17 AM EDT Lyla Yip N Q3: How often do you have six or more drinks on one occasion? Never 04/16/2025 10:17 AM EDT Lyla Yip N * Over the past 2 weeks, how often have you been bothered by any of the following problems? Question Answer Date of Assessment Author Little interest or pleasure in doing things Not at all 03/30/2025 3:56 PM EDT Day, Radha D Feeling down, depressed, or hopeless Not at all 03/15 3:56 PM EDT Day, Radha D Patient Health Questionnaire-2 Score 0 03/15 3:56 PM EDT Day, Radha D documented as of this encounter Plan of Treatment Not on file documented as of this encounter Visit Diagnoses Not on filedocumented in this encounter Additional Health Concerns Assessment Noted Time PHQ-9 Depression Total Score: 0 02/17/20 8:42 AM EDT A fall risk assessment has been complete d for the patient 02/16/2025 8:42 AM EDT A Body Mass Index follow-up plan has been documented for the patient 12/02/2024 2:47 PM EST documented as of this encounter Care Teams Code And Test Clerk Relationship Specialty Start Date End Date Anju Foreman APRN [address] [place] [address] PCP - General 02/16/25 Chad Maki MD [address] [facility] [address] [place] [address] Consulting Physician Urology 02/16/25 documented as of this encounter
--- OUTSIDE RECORDS SUMMARY | 2025-06-04 14:20 | XMS_ITS | Encounter Summary ---
Author Organization Healthcare Address [address] [place] [address] Care Team Providers Care Cable Splicer Apprentice Name Role Phone Anju Foreman APRN Primary Care Provider [phone] Chad Maki MD Unavailable [phone] Reason for Visit * Reason Comments Med Refill Encounter Details Date Type Department Care Team (Late st Contact Info) Description 05/16/2025 Refill [facility] [address] [place] [address] Dona Cameron, TAISHA, DNP [address] [place] [address] Social History Tobacco Use Types [...] encounter Miscellaneous Notes * Telephone Encounter - Fletcher Lr - 05/18/2025 11:28 AM EDT Called and left a message for the patient to give the clinic a call back documented in this encounter Plan of Treatment [...] documented as of this encounter Care Teams Cable Splicer Apprentice Relationship Specialty Start Date End Date Anju Foreman APRN [address] [place] [address] PCP - General 02/16/25 Chad Maki MD [address] [address] Consulting Physician Urology 02/16/25 documented as of this encounter
--- OUTSIDE RECORDS SUMMARY | 2025-06-04 14:20 | XMS_ITS | Encounter Summary ---
Author Organization [facility] Address [address] [place] [address] Care Team Providers Care Advertising Editor Name Role Phone Anju Foreman APRN Primary Care Provider [phone] Cahd Maki MD Unavailable [phone] Encounter Details Date Type Department Care Team (Latest Contact Info) Description 04/16/2025 Travel Social History Tobacco Use Types Packs/Day Years [...] Never 04/16/2025 10:17 AM EDT Lyla Yip documented as of this encounter Plan of [...] documented as of this encounter Care Teams Advertising Editor Relationship Specialty Start Date End Date Anju Foreman APRN [address] [place], [place] [id number] PCP - General 02/16/25 Chad Maki MD [address] [facility] [address] [place] [address] Consulting Physician Urology 02/16/25 documented as of this encounter
== END 2025-06-04 23:59 | disposition home or self-care (01) ==
LOC: RAD 14:07
PROVIDERS: PCP Nurse Practitioner Family; Visit Provider Student in an Organized Health Care Education/Training Program
DX: M25.562 Pain in left knee (principal)
CPT/HCPCS: 73562